=== PATIENT | female | born 1970 ===

== ENCOUNTER 2017-03-07 05:49 | Emergency (ER) | payer MEDICAID ==
[2017-03-07 06:22] VITALS: BP 148/91; PULSE 90; RESP 20; TEMP 98.1; O2SAT 99
== END 2017-03-07 06:45 | disposition left against medical advice (07) ==
LOC: C.ER 05:49
DX: Z00.8 Encounter for other general examination (principal); Z02.9 Encounter for administrative examinations, unspecified

== ENCOUNTER 2017-06-08 19:13 | Emergency (ER) | payer MEDICAID | END 2017-06-08 19:43 | disposition left against medical advice (07) | LOC: C.ER 19:13 | DX: Z02.89 Encounter for other administrative examinations (principal); R21 Rash and other nonspecific skin eruption ==

== ENCOUNTER → 2017-06-10 22:36 | Emergency (ER) | payer MEDICAID | END | disposition left against medical advice (07) | LOC: SUPCPDRO 22:36 → C.ER 22:36 | DX: R21 Rash and other nonspecific skin eruption (principal); Z02.9 Encounter for administrative examinations, unspecified ==

== ENCOUNTER 2017-06-16 16:58 | Emergency (ER) | payer MEDICAID | END 2017-06-16 17:39 | disposition left against medical advice (07) | LOC: C.ER 16:58 | DX: Z02.89 Encounter for other administrative examinations (principal); R21 Rash and other nonspecific skin eruption ==

== ENCOUNTER 2018-03-17 13:03 | Inpatient (IN) | payer MEDICAID, OTHER ==
[2018-03-17 13:09] VITALS: BMI 23.4
[2018-03-17] MEDS ORDERED: Sodium Chloride 0.9% 1,000 ML IV ONE (13:51)
[2018-03-17 14:19] LABS: BASO # 0.1 K/uL (0.0-0.2); BASO % 0.8 % (0.0-2.0); EOS % 0.4 % (0.0-4.0); LYMPH # 1.1 K/uL (1.0-4.3); LYMPH % 15.9 % (20.0-40.0); MEAN CORPUSCULAR HEMOGLOBIN 22.9 pg (27.0-31.0); MEAN CORPUSCULAR HGB CONC 32.7 g/dL (33.0-37.0); MEAN PLATELET VOLUME 8.7 fL (7.2-11.7); MONO # 0.9 K/uL (0.0-0.8); MONO % 13.1 % (0.0-10.0); NEUT % 69.8 % (50.0-75.0); NRBC % 1.1 % (0.0-2.0); RBC 3.11 Mil/uL (3.80-5.20); RED CELL DISTRIBUTION WIDTH 22.5 % (11.5-14.5); WHITE BLOOD COUNT 7.1 K/uL (4.8-10.8)
[2018-03-17 14:27] LABS: INR 1.3; PROTHROMBIN TIME 13.7 SECONDS (9.7-12.2)
--- NOTE | 2018-03-17 14:30 | RAD ---
HISTORY: near syncope COMPARISON: Comparison made with prior CT scan abdomen pelvis 10/31/2016 which imaged both lung bases. FINDINGS: LUNGS: No active pulmonary disease. PLEURA: No significant pleural effusion identified, no pneumothorax apparent. CARDIOVASCULAR: Normal. OSSEOUS STRUCTURES: No significant abnormalities. VISUALIZED UPPER ABDOMEN: Normal. OTHER FINDINGS: None. IMPRESSION: No active disease.
[2018-03-17 14:32] LABS: HEMOGLOBIN 7.1 g/dL (11.0-16.0)
[2018-03-17 14:47] LABS: BARBITURATES, UR NEGATIVE (NEGATIVE); BENZODIAZEPINES, UR NEGATIVE (NEGATIVE); OPIATES, UR NEGATIVE (NEGATIVE); PHENCYCLIDINE, UR NEGATIVE (NEGATIVE)
[2018-03-17 14:48] LABS: HCG,QUALITATIVE URINE NEGATIVE (NEGATIVE)
[2018-03-17 14:52] LABS: ALB/GLOB RATIO 0.9 (1.0-2.1); ALBUMIN 4.6 g/dL (3.5-5.0); ALT/SGPT 41 U/L (9-52); AST/SGOT 117 U/L (14-36); BLOOD UREA NITROGEN 11 mg/dL (7-17); GFR AFRICAN-AMERICAN > 60; GFR NON-AFRICAN AMERICAN > 60
[2018-03-17 14:52] LABS: SQUAMOUS EPITHIAL 5 /hpf (0-5); URINE BACTERIA OCC (<OCC); URINE BILIRUBIN NEGATIVE (NEGATIVE); URINE BLOOD NEGATIVE (NEGATIVE); URINE CLARITY Hazy (Clear); URINE COLOR Yellow (YELLOW); URINE GLUCOSE (UA) NORMAL (Normal); URINE LEUKOCYTE ESTERASE 3+ Leu/uL (Negative); URINE PROTEIN 1+ mg/dL (NEGATIVE)
[2018-03-17 14:53] LABS: B-TYPE NATRIURETIC PEPTIDE 85.4 pg/mL (0-450)
--- NOTE | 2018-03-17 15:06 | C.PDOC ---
History Of Present Illness 47-year-old female presents to the ED with her boyfriend for evaluation of near- syncopal episodes. Patient admits she drinks six 24-ounce beers every day and eats scantily. Patient has history of alcoholic cirrhosis with ascites but has not decreased her alcoholic intake. Patient and her boyfriend have history of homelessness. She denies suicidal/homicidal ideation, nausea, vomiting, extremity numbness/weakness at this time. Time Seen by Provider: 03/17/18 13:43 Chief Complaint (Nursing): Dizziness/Lightheaded History Per: Patient History/Exam Limitations: no limitations Onset/Duration Of Symptoms: Hrs Current Symptoms Are (Timing): Still Present Additional History Per: Patient Past Medical History Reviewed: Historical Data, Nursing Documentation, Vital Signs Vital Signs: Last Vital Signs Temp 99.3 F 03/17/18 22:18 Pulse 98 H 03/17/18 22:18 Resp 20 03/17/18 22:18 BP 131/68 03/17/18 22:18 Pulse Ox 100 03/17/18 22:49 - Medical History PMH: Anemia, Asthma Surgical History: No Surg Hx Family History: States: Unknown Family Hx - Social History Hx Alcohol Use: Yes Hx Substance Use: No - Immunization History Hx Tetanus Toxoid Vaccination: Yes Hx Influenza Vaccination: Yes Hx Pneumococcal Vaccination: Yes Review Of Systems Constitutional: Positive for: Other (early satiety) Gastrointestinal: Negative for: Nausea, Vomiting Neurological: Positive for: Other (near-syncopal episodes ). Negative for: Weakness, Numbness Psych: Negative for: Suicidal ideation Physical Exam - Physical Exam Appears: Non-toxic, No Acute Distress, Chronically Ill, Other (intoxicated ) Skin: Normal Color, Warm, Dry Head: Atraumatic, Normacephalic Eye(s): bilateral: Normal Inspection Oral Mucosa: Moist Neck: Supple Chest: Symmetrical, No Deformity, No Tenderness Cardiovascular: Rhythm Regular, No Murmur Respiratory: Normal Breath Sounds, No Rales, No Rhonchi, No Wheezing Gastrointestinal/Abdominal: Soft, No Guarding, No Rebound, Ascites Extremity: Normal ROM, Capillary Refill (less than 2 seconds ), Other (thin lower extremities) Neurological/Psych: Oriented x3, Normal Speech, Normal Cognition Additional Physical Exam Comments: rectal exam, no hemorroids, normal tone, scant stool, no dark discoloration, guaiac neg ED Course And Treatment - Laboratory Results Result Diagrams: 03/17/18 14:12 03/17/18 16:26 Lab Interpretation: Abnormal (signficant hyponatremia, baseline anemia. hgb drop from 11.3 (2/), UA 49 WBC's, guaiac neg.) Urine POC: Negative ECG: Interpreted By Me ECG Rhythm: Sinus Rhythm ECG Interpretation: Normal Rate From EC O2 Sat by Pulse Oximetry: 100 (on RA) Pulse Ox Interpretation: Normal - Radiology CXR: Interpreted by Me CXR Interpretation: Yes: No Acute Disease - Other Rad CXR X-Ray: Interpreted by Me, Viewed By Me, Read By Radiologist Interpretation: IMPRESSION: No active disease. Progress Note: ns, protonix, librium. Patient initially near-syncopal, but then spontaneously became ambulatory and conversational at baseline. Reevaluation Time: 15:26 Reassessment Condition: Improved - Physician Consult Information Outcome Of Conversation: 1500: d/w Hospitalist- [employer] for self-pay- ok to admit to tele, will guaiac pt on adm. Medical Decision Making Medical Decision Making: beer potomania pt euvolemic, avoid fluid overload in pt with abd ascites correct Na with diet. normal neuro exam in ED, defer hypertonic saline and ICU poor food intake and prob underlying alcoholic gastritis giving early satiety Protonix IV liver cirrhosis and abd ascites known from prior adm, LOW susp of acute abd/SBP Anemia/hgb drop from 11.3 to 7 probably GI and chronic denies s/s of GIB consider upper/lower endoscopies NOT symptomatic anemia, walking in ED with normal gait alcoholism librium given no h/o szr continue CIWA protocol UA 49 WBC's astympatic pyuria vs dirty catch defer abx re-eval UA if symptomatic. Disposition Doctor Will See Patient In The: Hospital Counseled Patient/Family Regarding: Studies Performed, Diagnosis - Disposition Disposition: HOSPITALIZED Disposition Time: 15:30 Condition: GOOD - Clinical Impression Clinical Impression: Near syncope, Alcohol abuse, Hyponatremia, Anemia - Scribe Statement The provider has reviewed the documentation as recorded by the Scribe (Jennifer Chapa) Provider Attestation: All medical record entries made by the Scribe were at my direction and personally dictated by me. I have reviewed the chart and agree that the record accurately reflects my personal performance of the history, physical exam, medical decision making, and the department course for this patient. I have also personally directed, reviewed, and agree with the discharge instructions and disposition.
--- NOTE | 2018-03-17 16:23 | CP.PCM.HP ---
<Radha WilkinsBaltazar - Last Filed: 03/17/18 18:01> History of Present Illness - History of Present Illness History of Present Illness: CC: dizziness, fall HPI: Patient has a PMHx of alcohol abuse, anemia, and depression (with multiple suicide attempts last one 10 years ago). Patient also admits to using crack 10 years ago daily. Patient presents today for dizziness and falls. Patient says she falls almost every day. Today the patient felt palpitations and dizziness and then fell to the floor. She said she did not hit her head today but thinks she may have hit her head 1 week ago. Patient did not lose consciousness or bowel or bladder incontinence. When patient was being transferred from the waiting room to a bed in the ED, staff said she became rigid, her eyes rolled back in her head, and she urinated herself. Patient says she does not remember this episode. Currently patient says she feels slightly lightheaded. Patient denies headache, chest pain, shortness of breath, abdominal pain, nausea, vomiting, constipation, or diarrhea. PMD: Dr. Nelson All: NKDA PMHx: Anemia, depression Psur c sections Social: drinks 4-5 large beers daily for 10 years used to do crack cocaine 10 years ago, used to smoke cigarettes 10 years ago Famhx: Mom- HTN Meds: was on zoloft 10 years ago for depression, no medications currently Present on Admission - Present on Admission Any Indicators Present on Admission: No History of DVT/PE: No History of Uncontrolled Diabetes: No Urinary Catheter: No Decubitus Ulcer Present: No Review of Systems - Constitutional Constitutional: Frequent Falls. absent: Anorexia, Chills, Fever, Headache, Weakness - EENT Eyes: absent: Change in Vision - Cardiovascular Cardiovascular: Palpitations. absent: Chest Pain, Dyspnea, Pedal Edema - Respiratory Respiratory: absent: Cough, Dyspnea, Wheezing - Gastrointestinal Gastrointestinal: absent: Abdominal Pain, Constipation, Nausea, Vomiting - Genitourinary Genitourinary: absent: Change in Urinary Stream, Difficulty Urinating, Dysuria - Musculoskeletal Musculoskeletal: Muscle Weakness - Integumentary Integumentary: Sores - Neurological Neurological: Dizziness, Frequent Falls Past Patient History - Past Social History Smoking Status: Never Smoked - PULMONARY Hx Asthma: Yes - HEMATOLOGICAL/ONCOLOGICAL Hx Anemia: Yes - PSYCHIATRIC Hx Substance Use: No - SURGICAL HISTORY Hx Surgeries: Yes Hx Section: Yes (x2) - ANESTHESIA Hx Anesthesia: Yes Hx Anesthesia Reactions: No Meds Allergies/Adverse Reactions: Allergies Allergy/AdvReac Type Severity Reaction Status Date / Time No Known Allergies Allergy Verified 03/17/18 13:08 Physical Exam - Constitutional Appears: Non-toxic, No Acute Distress - Head Exam Head Exam: ATRAUMATIC, NORMAL INSPECTION, NORMOCEPHALIC - Eye Exam Eye Exam: EOMI, Normal appearance - ENT Exam ENT Exam: Mucous Membranes Moist Additional comments: poor dentition - Neck Exam Neck exam: Positive for: Full Rom. Negative for: Tenderness - Respiratory Exam Respiratory Exam: Clear to Auscultation Bilateral, NORMAL BREATHING PATTERN. absent: Rales, Rhonchi, Wheezes, Respiratory Distress, Stridor - Cardiovascular Exam Cardiovascular Exam: REGULAR RHYTHM, RRR, +S1, +S2 - GI/Abdominal Exam GI & Abdominal Exam: Normal Bowel Sounds, Soft. absent: Tenderness - Rectal Exam Rectal Exam: NORMAL INSPECTION. absent: Bloody Stool, Hemorrhoids, Fecal Impaction - Extremities Exam Extremities exam: Positive for: normal inspection. Negative for: pedal edema, tenderness - Back Exam Back exam: NORMAL INSPECTION - Neurological Exam Neurological exam: Alert, CN II-XII Intact, Oriented x3 - Psychiatric Exam Psychiatric exam: Normal Affect, Normal Mood - Skin Skin Exam: Intact, Warm Additional comments: scabs over legs, arms, back Results - Vital Signs Recent Vital Signs: Last Vital Signs Temp 98.6 F 03/17/18 13:08 Pulse 96 H 03/17/18 16:00 Resp 18 03/17/18 16:00 BP 137/55 L 03/17/18 16:00 Pulse Ox 100 03/17/18 16:00 - Labs Result Diagrams: 03/17/18 14:12 03/17/18 16:26 Labs: Laboratory Results - last 24 hr 03/17/18 03/17/18 03/17/18 13:31 14:12 14:12 WBC 7.1 RBC 3.11 L Hgb 7.1 L D Hct 21.8 L MCV 70.0 L D MCH 22.9 L MCHC 32.7 L RDW 22.5 H Plt Count 164 MPV 8.7 Neut % (Auto) 69.8 Lymph % (Auto) 15.9 L [place] % (Auto) 13.1 H Eos % (Auto) 0.4 Baso % (Auto) 0.8 Neut # (Auto) 5.0 Lymph # (Auto) 1.1 [place] # (Auto) 0.9 H Eos # (Auto) 0.0 Baso # (Auto) 0.1 Retic Count PT 13.7 H INR 1.3 APTT 37 H Sodium Potassium Chloride Carbon Dioxide Anion Gap BUN Creatinine Est GFR ( Amer) Est GFR (Non-Af Amer) POC Glucose (mg/dL) 119 H Random Glucose Serum Osmolality Calcium Magnesium Total Bilirubin AST ALT Alkaline Phosphatase Total Creatine Kinase Troponin I NT-Pro-B Natriuret Pep Total Protein Albumin Globulin Albumin/Globulin Ratio Urine Color Urine Clarity Urine pH Ur Specific [place] Urine Protein Urine Glucose (UA) Urine Ketones Urine Blood Urine Nitrate Urine Bilirubin Urine Urobilinogen Ur Leukocyte Esterase Urine WBC (Auto) Urine RBC (Auto) Ur Squamous Epith Cells Urine Bacteria Ur Random Sodium Urine HCG, Qual Stool Occult Blood Urine Opiates Screen Urine Methadone Screen Ur Barbiturates Screen Ur Phencyclidine Scrn Ur Amphetamines Screen U Benzodiazepines Scrn U Oth Cocaine Metabols U Cannabinoids Screen Alcohol, Quantitative 03/17/18 03/17/18 03/17/18 14:12 14:25 14:25 WBC RBC Hgb Hct MCV MCH MCHC RDW Plt Count MPV Neut % (Auto) Lymph % (Auto) [place] % (Auto) Eos % (Auto) Baso % (Auto) Neut # (Auto) Lymph # (Auto) [place] # (Auto) Eos # (Auto) Baso # (Auto) Retic Count PT INR APTT Sodium 120 L* Potassium 3.8 Chloride 83 L Carbon Dioxide 20 L Anion Gap 21 H BUN 11 Creatinine 0.8 Est GFR ( Amer) > 60 Est GFR (Non-Af Amer) > 60 POC Glucose (mg/dL) Random Glucose 119 H Serum Osmolality Calcium 9.0 Magnesium 1.7 Total Bilirubin 0.7 AST 117 H ALT 41 Alkaline Phosphatase 149 H Total Creatine Kinase 85 Troponin I < 0.0120 NT-Pro-B Natriuret Pep 85.4 Total Protein 9.5 H Albumin 4.6 Globulin 5.0 H Albumin/Globulin Ratio 0.9 L Urine Color Yellow Urine Clarity Hazy Urine pH 7.0 Ur Specific [place] 1.010 Urine Protein 1+ H Urine Glucose (UA) Normal Urine Ketones Negative Urine Blood Negative Urine Nitrate Negative Urine Bilirubin Negative Urine Urobilinogen 2.0 H Ur Leukocyte Esterase 3+ H Urine WBC (Auto) 49 H Urine RBC (Auto) 2 Ur Squamous Epith Cells 5 Urine Bacteria Occ H Ur Random Sodium Urine HCG, Qual Negative Stool Occult Blood Urine Opiates Screen Negative Urine Methadone Screen Negative Ur Barbiturates Screen Negative Ur Phencyclidine Scrn Negative Ur Amphetamines Screen Negative U Benzodiazepines Scrn Negative U Oth Cocaine Metabols Negative U Cannabinoids Screen Negative Alcohol, Quantitative 155 H 03/17/18 03/17/18 03/17/18 15:49 15:59 16:03 WBC RBC Hgb Hct MCV MCH MCHC RDW Plt Count MPV Neut % (Auto) Lymph % (Auto) [place] % (Auto) Eos % (Auto) Baso % (Auto) Neut # (Auto) Lymph # (Auto) [place] # (Auto) Eos # (Auto) Baso # (Auto) Retic Count 2.9 H PT INR APTT Sodium Potassium Chloride Carbon Dioxide Anion Gap BUN Creatinine Est GFR ( Amer) Est GFR (Non-Af Amer) POC Glucose (mg/dL) Random Glucose Serum Osmolality 305 H Calcium Magnesium Total Bilirubin AST ALT Alkaline Phosphatase Total Creatine Kinase Troponin I NT-Pro-B Natriuret Pep Total Protein Albumin Globulin Albumin/Globulin Ratio Urine Color Urine Clarity Urine pH Ur Specific [place] Urine Protein Urine Glucose (UA) Urine Ketones Urine Blood Urine Nitrate Urine Bilirubin Urine Urobilinogen Ur Leukocyte Esterase Urine WBC (Auto) Urine RBC (Auto) Ur Squamous Epith Cells Urine Bacteria Ur Random Sodium 133 Urine HCG, Qual Stool Occult Blood Urine Opiates Screen Urine Methadone Screen Ur Barbiturates Screen Ur Phencyclidine Scrn Ur Amphetamines Screen U Benzodiazepines Scrn U Oth Cocaine Metabols U Cannabinoids Screen Alcohol, Quantitative 03/17/18 16:13 WBC RBC Hgb Hct MCV MCH MCHC RDW Plt Count MPV Neut % (Auto) Lymph % (Auto) [place] % (Auto) Eos % (Auto) Baso % (Auto) Neut # (Auto) Lymph # (Auto) [place] # (Auto) Eos # (Auto) Baso # (Auto) Retic Count PT INR APTT Sodium Potassium Chloride Carbon Dioxide Anion Gap BUN Creatinine Est GFR ( Amer) Est GFR (Non-Af Amer) POC Glucose (mg/dL) Random Glucose Serum Osmolality Calcium Magnesium Total Bilirubin AST ALT Alkaline Phosphatase Total Creatine Kinase Troponin I NT-Pro-B Natriuret Pep Total Protein Albumin Globulin Albumin/Globulin Ratio Urine Color Urine Clarity Urine pH Ur Specific [place] Urine Protein Urine Glucose (UA) Urine Ketones Urine Blood Urine Nitrate Urine Bilirubin Urine Urobilinogen Ur Leukocyte Esterase Urine WBC (Auto) Urine RBC (Auto) Ur Squamous Epith Cells Urine Bacteria Ur Random Sodium Urine HCG, Qual Stool Occult Blood Negative Urine Opiates Screen Urine Methadone Screen Ur Barbiturates Screen Ur Phencyclidine Scrn Ur Amphetamines Screen U Benzodiazepines Scrn U Oth Cocaine Metabols U Cannabinoids Screen Alcohol, Quantitative Assessment & Plan - Assessment and Plan (Free Text) Assessment: Hypovolemic Hyponatremia Admit to tele in Oct 2016 Na+ 120, today Na+ 120 (corrected to 125 with 1L NS) f/u serum osmolarity, urine osmolarity Urine Na+ 133 given 1L NS in ED Nephro consulted, Dr. Isabel, help appreciated Dehydration 1L NS given in ED S/p fall f/u Head CT Anemia suspected to be chronic f/u retic count, iron, TIBC, ferritin, % saturation, B12, folate, haptoglobin stool occult blood negative no gross blood seen on rectal, no hemorrhoids or masses type and screen ordered Alcohol abuse elevated alcohol on admission CIWA protocol Ativan 1mg iv q6h prn seizure Aspiration precautions seizure precautions Thiamine 100mg po daily Folic acid 1mg po daily Multivitamins daily Depression continue to monitor Prophylactic Measure Aspiration precautions seizure precautions fall precuations DVT prophylaxis once bleed ruled out SCDs Pepcid 20mg po daily PT/OT eval <Rubi Elaine V - Last Filed: 03/17/18 19:58> Results - Vital Signs Recent Vital Signs: Last Vital Signs Temp 99.3 F 03/17/18 17:51 Pulse 80 03/17/18 17:51 Resp 20 03/17/18 17:51 BP 151/77 H 03/17/18 17:51 Pulse Ox 100 03/17/18 17:51 - Labs Result Diagrams: 03/17/18 14:12 03/17/18 16:26 Labs: Laboratory Results - last 24 hr 03/17/18 03/17/18 03/17/18 13:31 14:12 14:12 WBC 7.1 RBC 3.11 L Hgb 7.1 L D Hct 21.8 L MCV 70.0 L D MCH 22.9 L MCHC 32.7 L RDW 22.5 H Plt Count 164 MPV 8.7 Neut % (Auto) 69.8 Lymph % (Auto) 15.9 L [place] % (Auto) 13.1 H Eos % (Auto) 0.4 Baso % (Auto) 0.8 Neut # (Auto) 5.0 Lymph # (Auto) 1.1 [place] # (Auto) 0.9 H Eos # (Auto) 0.0 Baso # (Auto) 0.1 Retic Count PT 13.7 H INR 1.3 APTT 37 H Sodium Potassium Chloride Carbon Dioxide Anion Gap BUN Creatinine Est GFR ( Amer) Est GFR (Non-Af Amer) POC Glucose (mg/dL) 119 H Random Glucose Serum Osmolality Calcium Magnesium Ferritin Total Bilirubin AST ALT Alkaline Phosphatase Total Creatine Kinase Troponin I NT-Pro-B Natriuret Pep Total Protein Albumin Globulin Albumin/Globulin Ratio Vitamin B12 Urine Color Urine Clarity Urine pH Ur Specific [place] Urine Protein Urine Glucose (UA) Urine Ketones Urine Blood Urine Nitrate Urine Bilirubin Urine Urobilinogen Ur Leukocyte Esterase Urine WBC (Auto) Urine RBC (Auto) Ur Squamous Epith Cells Urine Bacteria Ur Random Sodium Urine HCG, Qual Stool Occult Blood Urine Opiates Screen Urine Methadone Screen Ur Barbiturates Screen Ur Phencyclidine Scrn Ur Amphetamines Screen U Benzodiazepines Scrn U Oth Cocaine Metabols U Cannabinoids Screen Alcohol, Quantitative 03/17/18 03/17/18 03/17/18 14:12 14:25 14:25 WBC RBC Hgb Hct MCV MCH MCHC RDW Plt Count MPV Neut % (Auto) Lymph % (Auto) [place] % (Auto) Eos % (Auto) Baso % (Auto) Neut # (Auto) Lymph # (Auto) [place] # (Auto) Eos # (Auto) Baso # (Auto) Retic Count PT INR APTT Sodium 120 L* Potassium 3.8 Chloride 83 L Carbon Dioxide 20 L Anion Gap 21 H BUN 11 Creatinine 0.8 Est GFR ( Amer) > 60 Est GFR (Non-Af Amer) > 60 POC Glucose (mg/dL) Random Glucose 119 H Serum Osmolality Calcium 9.0 Magnesium 1.7 Ferritin Total Bilirubin 0.7 AST 117 H ALT 41 Alkaline Phosphatase 149 H Total Creatine Kinase 85 Troponin I < 0.0120 NT-Pro-B Natriuret Pep 85.4 Total Protein 9.5 H Albumin 4.6 Globulin 5.0 H Albumin/Globulin Ratio 0.9 L Vitamin B12 Urine Color Yellow Urine Clarity Hazy Urine pH 7.0 Ur Specific [place] 1.010 Urine Protein 1+ H Urine Glucose (UA) Normal Urine Ketones Negative Urine Blood Negative Urine Nitrate Negative Urine Bilirubin Negative Urine Urobilinogen 2.0 H Ur Leukocyte Esterase 3+ H Urine WBC (Auto) 49 H Urine RBC (Auto) 2 Ur Squamous Epith Cells 5 Urine Bacteria Occ H Ur Random Sodium Urine HCG, Qual Negative Stool Occult Blood Urine Opiates Screen Negative Urine Methadone Screen Negative Ur Barbiturates Screen Negative Ur Phencyclidine Scrn Negative Ur Amphetamines Screen Negative U Benzodiazepines Scrn Negative U Oth Cocaine Metabols Negative U Cannabinoids Screen Negative Alcohol, Quantitative 155 H 03/17/18 03/17/18 03/17/18 15:49 15:59 15:59 WBC RBC Hgb Hct MCV MCH MCHC RDW Plt Count MPV Neut % (Auto) Lymph % (Auto) [place] % (Auto) Eos % (Auto) Baso % (Auto) Neut # (Auto) Lymph # (Auto) [place] # (Auto) Eos # (Auto) Baso # (Auto) Retic Count 2.9 H PT INR APTT Sodium Potassium Chloride Carbon Dioxide Anion Gap BUN Creatinine Est GFR ( Amer) Est GFR (Non-Af Amer) POC Glucose (mg/dL) Random Glucose Serum Osmolality 305 H Calcium Magnesium Ferritin 9.3 Total Bilirubin AST ALT Alkaline Phosphatase Total Creatine Kinase Troponin I NT-Pro-B Natriuret Pep Total Protein Albumin Globulin Albumin/Globulin Ratio Vitamin B12 433 Urine Color Urine Clarity Urine pH Ur Specific [place] Urine Protein Urine Glucose (UA) Urine Ketones Urine Blood Urine Nitrate Urine Bilirubin Urine Urobilinogen Ur Leukocyte Esterase Urine WBC (Auto) Urine RBC (Auto) Ur Squamous Epith Cells Urine Bacteria Ur Random Sodium Urine HCG, Qual Stool Occult Blood Urine Opiates Screen Urine Methadone Screen Ur Barbiturates Screen Ur Phencyclidine Scrn Ur Amphetamines Screen U Benzodiazepines Scrn U Oth Cocaine Metabols U Cannabinoids Screen Alcohol, Quantitative 03/17/18 03/17/18 03/17/18 16:03 16:13 16:26 WBC RBC Hgb Hct MCV MCH MCHC RDW Plt Count MPV Neut % (Auto) Lymph % (Auto) [place] % (Auto) Eos % (Auto) Baso % (Auto) Neut # (Auto) Lymph # (Auto) [place] # (Auto) Eos # (Auto) Baso # (Auto) Retic Count PT INR APTT Sodium 125 L Potassium 3.6 Chloride 89 L Carbon Dioxide 18 L Anion Gap 21 H BUN 11 Creatinine 0.7 Est GFR ( Amer) > 60 Est GFR (Non-Af Amer) > 60 POC Glucose (mg/dL) Random Glucose 100 Serum Osmolality Calcium 8.5 L Magnesium Ferritin Total Bilirubin AST ALT Alkaline Phosphatase Total Creatine Kinase Troponin I NT-Pro-B Natriuret Pep Total Protein Albumin Globulin Albumin/Globulin Ratio Vitamin B12 Urine Color Urine Clarity Urine pH Ur Specific [place] Urine Protein Urine Glucose (UA) Urine Ketones Urine Blood Urine Nitrate Urine Bilirubin Urine Urobilinogen Ur Leukocyte Esterase Urine WBC (Auto) Urine RBC (Auto) Ur Squamous Epith Cells Urine Bacteria Ur Random Sodium 133 Urine HCG, Qual Stool Occult Blood Negative Urine Opiates Screen Urine Methadone Screen Ur Barbiturates Screen Ur Phencyclidine Scrn Ur Amphetamines Screen U Benzodiazepines Scrn U Oth Cocaine Metabols U Cannabinoids Screen Alcohol, Quantitative 03/17/18 18:05 WBC RBC Hgb Hct MCV MCH MCHC RDW Plt Count MPV Neut % (Auto) Lymph % (Auto) [place] % (Auto) Eos % (Auto) Baso % (Auto) Neut # (Auto) Lymph # (Auto) [place] # (Auto) Eos # (Auto) Baso # (Auto) Retic Count PT INR APTT Sodium Potassium Chloride Carbon Dioxide Anion Gap BUN Creatinine Est GFR ( Amer) Est GFR (Non-Af Amer) POC Glucose (mg/dL) Random Glucose Serum Osmolality Calcium Magnesium Ferritin Total Bilirubin AST ALT Alkaline Phosphatase Total Creatine Kinase Troponin I NT-Pro-B Natriuret Pep Total Protein Albumin Globulin Albumin/Globulin Ratio Vitamin B12 Urine Color Urine Clarity Urine pH Ur Specific [place] Urine Protein Urine Glucose (UA) Urine Ketones Urine Blood Urine Nitrate Urine Bilirubin Urine Urobilinogen Ur Leukocyte Esterase Urine WBC (Auto) Urine RBC (Auto) Ur Squamous Epith Cells Urine Bacteria Ur Random Sodium Urine HCG, Qual Stool Occult Blood Negative Urine Opiates Screen Urine Methadone Screen Ur Barbiturates Screen Ur Phencyclidine Scrn Ur Amphetamines Screen U Benzodiazepines Scrn U Oth Cocaine Metabols U Cannabinoids Screen Alcohol, Quantitative Attending/Attestation - Attestation I have personally seen and examined this patient.: Yes I have fully participated in the care of the patient.: Yes I have reviewed all pertinent clinical information: Yes Notes (Text): Patient seen, examined, and case discussed with day-time resident. Patient is known alcohol abuse, daily use, history of depression comes to the emergency room today. Patient has sodium 120; in Oct 2016 was 120. Patient is awake, alert, oriented X3, no acute distress, able to follow commands. Patient reports she mainly drinks beers. Patient with known hx of anemia; Hgb 7.7 prior Hgb: 11. Patient does not appear as acute gi bleed. Resident has performed rectal no gross blood noted. Stool occult is negative. Patient has received NS 1 Liter of fluid. Patient has history of falls and fell today as well. Patient ordered for CT head , which showed no acute pathology. Assessment/Plan 1) Suspected Hypovolemic Hyponatremia Assessment/Plan * Admit to tele * Beer potomania vs hypovoluemic vs s/p fall possible SIADH * Nephro consulted, Dr. Isabel, help appreciated * in Oct 2016 Na+ 120, today Na+ 120 (corrected to 125 with 1L NS) * f/u serum osmolarity, urine osmolarity, urine sodium * Discussed case with nephrology, awaiting urine osmolarity to determine if we need to start fluids. * Ordered for BMP, urine osmolarity, urine sodium in 6 hours * Will check TSH, Lipid panel, prolactin 2) Dehydration Assessment/Plan * 1L NS given in ED 3) S/p fall Assessment/Plan * CT head: no acute pathology 4) Anemia Assessment/Plan * suspected to be chronic * f/u retic count, iron, TIBC, ferritin, % saturation, B12, folate, haptoglobin * stool occult blood negative * no gross blood seen on rectal, no hemorrhoids or masses * type and screen ordered 5) Alcohol abuse Assessment/Plan * elevated alcohol on admission * CIWA protocol * Ativan 1mg iv q6h prn seizure * Aspiration precautions * seizure precautions * Thiamine 100mg po daily * Folic acid 1mg po daily * Multivitamins daily 6) History of Depression Assessment/Plan * continue to monitor * Patient used to take Zoloft for a year, but she decided to stop using it about 10 years ago 7) Prophylactic Measure Assessment/Plan * Aspiration precautions * seizure precautions * fall precautions * DVT prophylaxis once bleed ruled out * SCDs * Pepcid 20mg po daily * PT/OT eval
[2018-03-17 16:44] LABS: BLOOD UREA NITROGEN 11 mg/dL (7-17); CALCIUM 8.5 mg/dl (8.6-10.4); GFR AFRICAN-AMERICAN > 60; GFR NON-AFRICAN AMERICAN > 60
[2018-03-17 16:51] LABS: FERRITIN 9.3 ng/mL
--- NOTE | 2018-03-17 17:06 | CT ---
PROCEDURE: CT HEAD WITHOUT CONTRAST. HISTORY: fall, head trauma COMPARISON: CT head dated 10/31/2016. TECHNIQUE: Axial computed tomography images were obtained through the head/brain without intravenous contrast. Radiation dose: Total exam DLP = 811 mGy-cm. This CT exam was performed using one or more of the following dose reduction techniques: Automated exposure control, adjustment of the mA and/or kV according to patient size, and/or use of iterative reconstruction technique. FINDINGS: HEMORRHAGE: No intracranial hemorrhage. BRAIN: No mass effect or edema. Atrophy. Chronic microvascular ischemic changes. VENTRICLES: Prominent. No hydrocephalus. CALVARIUM: Unremarkable. PARANASAL SINUSES: Unremarkable as visualized. No significant inflammatory changes. MASTOID AIR CELLS: Unremarkable as visualized. No inflammatory changes. OTHER FINDINGS: None. IMPRESSION: No acute intracranial pathology.
[2018-03-17] MEDS: Multiple Vitamins Tab PO SCH (18:30)
[2018-03-17 19:52] LABS: IRON 21 ug/dL (37-170)
[2018-03-17 20:01] LABS: % IRON SATURATION 4 (20-55); TOTAL IRON BINDING CAPACITY 513 ug/dL (250-450)
[2018-03-18 00:01] LABS: BLOOD UREA NITROGEN 12 mg/dL (7-17); CALCIUM 9.1 mg/dl (8.6-10.4); GFR AFRICAN-AMERICAN > 60; GFR NON-AFRICAN AMERICAN > 60
[2018-03-18 01:01] LABS: OSMOLALITY,URINE 371 mosm/kg (300-1000)
--- NOTE | 2018-03-18 07:14 | CP.PCM.CON ---
History of Present Illness - History of Present Illness History of Present Illness: 47 yo F w/ pmh of ETOH abuse, depression, anemia, brought to ED by boyfriend for repeated falls and dizziness; nephrology being consulted for hyponatremia; History taken mainly from boyfriend and sister and patient is poor historian; Patient reportedly drinks ETOH 19/04; has been having persistent dizziness and repeated falls; doesn't eat much due to always drinking ETOH; had an episode of vomiting as well as some diarrhea yesterday; boyfriend also reports that she was complaining of dysuria although patient denies it Review of Systems - Constitutional Constitutional: As Per HPI - EENT Nose/Mouth/Throat: absent: Dysphagia - Cardiovascular Cardiovascular: absent: Chest Pain, Palpitations - Respiratory Respiratory: absent: Dyspnea - Gastrointestinal Gastrointestinal: As Per HPI - Genitourinary Genitourinary: As Per HPI - Musculoskeletal Additional comments: denies taking NSAIDS for pain - Neurological Neurological: As Per HPI - Psychiatric Additional comments: depression/substance abuse history, not showing interest in getting detox Past Patient History - Past Medical History & Family History Past Medical History?: Yes Pertinent Family History: mother-htn - Past Social History Smoking Status: Former Smoker - CARDIAC Hx Cardiac Disorders: No - PULMONARY Hx Asthma: Yes - NEUROLOGICAL Hx Neurological Disorder: No - HEENT Hx HEENT Problems: No - RENAL Hx Chronic Kidney Disease: No - ENDOCRINE/METABOLIC Hx Endocrine Disorders: No - HEMATOLOGICAL/ONCOLOGICAL Hx Anemia: Yes - INTEGUMENTARY Hx Dermatological Problems: Yes Other/Comment: Hx of itching, multiple scratch carmona all over body - MUSCULOSKELETAL/RHEUMATOLOGICAL Hx Falls: No - GASTROINTESTINAL Hx Gastrointestinal Disorders: No - GENITOURINARY/GYNECOLOGICAL Hx Genitourinary Disorders: No - PSYCHIATRIC Hx Substance Use: No - SURGICAL HISTORY Hx Surgeries: Yes Hx Section: Yes (x2) - ANESTHESIA Hx Anesthesia: Yes Hx Anesthesia Reactions: No Has any member of the family had a problem w/ anesthesia?: No Meds Allergies/Adverse Reactions: Allergies Allergy/AdvReac Type Severity Reaction Status Date / Time No Known Allergies Allergy Verified 03/17/18 13:08 - Medications Medications: Current Medications Famotidine (Pepcid) 20 mg PO DAILY [facility] Last Admin: 03/17/18 18:30 Dose: 20 mg Folic Acid (Folic Acid) 1 mg PO DAILY [facility] Last Admin: 03/17/18 18:30 Dose: 1 mg Lorazepam (Ativan) 1 mg IVP Q6H PRN PRN Reason: Seizure activity Last Admin: 03/18/18 00:47 Dose: 1 mg Multivitamins (Hexavitamin) 1 tab PO DAILY [facility] Last Admin: 03/17/18 18:30 Dose: 1 tab Mupirocin (Bactroban Ointment) 0 gm TOP BID [facility] Last Admin: 03/17/18 21:28 Dose: 1 applic Thiamine HCl (Vitamin B1 Tab) 100 mg PO DAILY [facility] Last Admin: 03/17/18 18:30 Dose: 100 mg Physical Exam - Constitutional Appears: Non-toxic, No Acute Distress - Eye Exam Eye Exam: absent: Scleral icterus - ENT Exam ENT Exam: Mucous Membranes Moist - Respiratory Exam Respiratory Exam: Clear to Auscultation Bilateral. absent: Respiratory Distress - Cardiovascular Exam Cardiovascular Exam: RRR, +S1 - GI/Abdominal Exam GI & Abdominal Exam: Soft. absent: Distended, Tenderness - Exam Exam: absent: Bladder Distension - Extremities Exam Additional comments: no leg edema - Neurological Exam Neurological exam: Alert Additional comments: tremor of outstretched hands; - Psychiatric Exam Additional comments: very fidgety - Skin Skin Exam: Normal Color, Warm Results - Vital Signs Recent Vital Signs: Last Vital Signs Temp 98.6 F 03/18/18 04:05 Pulse 105 H 03/18/18 04:05 Resp 20 03/18/18 04:05 BP 136/61 03/18/18 04:05 Pulse Ox 99 03/18/18 04:05 - Labs Result Diagrams: 03/17/18 14:12 03/17/18 23:46 Labs: Laboratory Results - last 24 hr 03/17/18 03/17/18 03/17/18 13:31 14:12 14:12 WBC 7.1 RBC 3.11 L Hgb 7.1 L D Hct 21.8 L MCV 70.0 L D MCH 22.9 L MCHC 32.7 L RDW 22.5 H Plt Count 164 MPV 8.7 Neut % (Auto) 69.8 Lymph % (Auto) 15.9 L [place] % (Auto) 13.1 H Eos % (Auto) 0.4 Baso % (Auto) 0.8 Neut # (Auto) 5.0 Lymph # (Auto) 1.1 Johnston # (Auto) 0.9 H Eos # (Auto) 0.0 Baso # (Auto) 0.1 Retic Count Haptoglobin PT 13.7 H INR 1.3 APTT 37 H Sodium Potassium Chloride Carbon Dioxide Anion Gap BUN Creatinine Est GFR ( Amer) Est GFR (Non-Af Amer) POC Glucose (mg/dL) 119 H Random Glucose Serum Osmolality Calcium Magnesium Iron TIBC % Saturation Ferritin Total Bilirubin AST ALT Alkaline Phosphatase Total Creatine Kinase Troponin I NT-Pro-B Natriuret Pep Total Protein Albumin Globulin Albumin/Globulin Ratio Vitamin B12 Folate Urine Color Urine Clarity Urine pH Ur Specific [place] Urine Protein Urine Glucose (UA) Urine Ketones Urine Blood Urine Nitrate Urine Bilirubin Urine Urobilinogen Ur Leukocyte Esterase Urine WBC (Auto) Urine RBC (Auto) Ur Squamous Epith Cells Urine Bacteria Urine Osmolality Ur Random Sodium Urine HCG, Qual Stool Occult Blood Urine Opiates Screen Urine Methadone Screen Ur Barbiturates Screen Ur Phencyclidine Scrn Ur Amphetamines Screen U Benzodiazepines Scrn U Oth Cocaine Metabols U Cannabinoids Screen Alcohol, Quantitative Blood Type Antibody Screen 03/17/18 03/17/18 03/17/18 14:12 14:25 14:25 WBC RBC Hgb Hct MCV MCH MCHC RDW Plt Count MPV Neut % (Auto) Lymph % (Auto) Johnston % (Auto) Eos % (Auto) Baso % (Auto) Neut # (Auto) Lymph # (Auto) Johnston # (Auto) Eos # (Auto) Baso # (Auto) Retic Count Haptoglobin PT INR APTT Sodium 120 L* Potassium 3.8 Chloride 83 L Carbon Dioxide 20 L Anion Gap 21 H BUN 11 Creatinine 0.8 Est GFR ( Amer) > 60 Est GFR (Non-Af Amer) > 60 POC Glucose (mg/dL) Random Glucose 119 H Serum Osmolality Calcium 9.0 Magnesium 1.7 Iron TIBC % Saturation Ferritin Total Bilirubin 0.7 AST 117 H ALT 41 Alkaline Phosphatase 149 H Total Creatine Kinase 85 Troponin I < 0.0120 NT-Pro-B Natriuret Pep 85.4 Total Protein 9.5 H Albumin 4.6 Globulin 5.0 H Albumin/Globulin Ratio 0.9 L Vitamin B12 Folate Urine Color Yellow Urine Clarity Hazy Urine pH 7.0 Ur Specific [place] 1.010 Urine Protein 1+ H Urine Glucose (UA) Normal Urine Ketones Negative Urine Blood Negative Urine Nitrate Negative Urine Bilirubin Negative Urine Urobilinogen 2.0 H Ur Leukocyte Esterase 3+ H Urine WBC (Auto) 49 H Urine RBC (Auto) 2 Ur Squamous Epith Cells 5 Urine Bacteria Occ H Urine Osmolality Ur Random Sodium Urine HCG, Qual Negative Stool Occult Blood Urine Opiates Screen Negative Urine Methadone Screen Negative Ur Barbiturates Screen Negative Ur Phencyclidine Scrn Negative Ur Amphetamines Screen Negative U Benzodiazepines Scrn Negative U Oth Cocaine Metabols Negative U Cannabinoids Screen Negative Alcohol, Quantitative 155 H Blood Type Antibody Screen 03/17/18 03/17/18 03/17/18 15:49 15:59 15:59 WBC RBC Hgb Hct MCV MCH MCHC RDW Plt Count MPV Neut % (Auto) Lymph % (Auto) [place] % (Auto) Eos % (Auto) Baso % (Auto) Neut # (Auto) Lymph # (Auto) [place] # (Auto) Eos # (Auto) Baso # (Auto) Retic Count 2.9 H Haptoglobin PT INR APTT Sodium Potassium Chloride Carbon Dioxide Anion Gap BUN Creatinine Est GFR ( Amer) Est GFR (Non-Af Amer) POC Glucose (mg/dL) Random Glucose Serum Osmolality 305 H Calcium Magnesium Iron TIBC % Saturation Ferritin 9.3 Total Bilirubin AST ALT Alkaline Phosphatase Total Creatine Kinase Troponin I NT-Pro-B Natriuret Pep Total Protein Albumin Globulin Albumin/Globulin Ratio Vitamin B12 433 Folate Urine Color Urine Clarity Urine pH Ur Specific [place] Urine Protein Urine Glucose (UA) Urine Ketones Urine Blood Urine Nitrate Urine Bilirubin Urine Urobilinogen Ur Leukocyte Esterase Urine WBC (Auto) Urine RBC (Auto) Ur Squamous Epith Cells Urine Bacteria Urine Osmolality Ur Random Sodium Urine HCG, Qual Stool Occult Blood Urine Opiates Screen Urine Methadone Screen Ur Barbiturates Screen Ur Phencyclidine Scrn Ur Amphetamines Screen U Benzodiazepines Scrn U Oth Cocaine Metabols U Cannabinoids Screen Alcohol, Quantitative Blood Type Antibody Screen 03/17/18 03/17/18 03/17/18 16:03 16:13 16:26 WBC RBC Hgb Hct MCV MCH MCHC RDW Plt Count MPV Neut % (Auto) Lymph % (Auto) [place] % (Auto) Eos % (Auto) Baso % (Auto) Neut # (Auto) Lymph # (Auto) [place] # (Auto) Eos # (Auto) Baso # (Auto) Retic Count Haptoglobin PT INR APTT Sodium 125 L Potassium 3.6 Chloride 89 L Carbon Dioxide 18 L Anion Gap 21 H BUN 11 Creatinine 0.7 Est GFR ( Amer) > 60 Est GFR (Non-Af Amer) > 60 POC Glucose (mg/dL) Random Glucose 100 Serum Osmolality Calcium 8.5 L Magnesium Iron TIBC % Saturation Ferritin Total Bilirubin AST ALT Alkaline Phosphatase Total Creatine Kinase Troponin I NT-Pro-B Natriuret Pep Total Protein Albumin Globulin Albumin/Globulin Ratio Vitamin B12 Folate Urine Color Urine Clarity Urine pH Ur Specific [place] Urine Protein Urine Glucose (UA) Urine Ketones Urine Blood Urine Nitrate Urine Bilirubin Urine Urobilinogen Ur Leukocyte Esterase Urine WBC (Auto) Urine RBC (Auto) Ur Squamous Epith Cells Urine Bacteria Urine Osmolality Ur Random Sodium 133 Urine HCG, Qual Stool Occult Blood Negative Urine Opiates Screen Urine Methadone Screen Ur Barbiturates Screen Ur Phencyclidine Scrn Ur Amphetamines Screen U Benzodiazepines Scrn U Oth Cocaine Metabols U Cannabinoids Screen Alcohol, Quantitative Blood Type Antibody Screen 03/17/18 03/17/18 03/17/18 18:05 19:36 19:36 WBC RBC Hgb Hct MCV MCH MCHC RDW Plt Count MPV Neut % (Auto) Lymph % (Auto) [place] % (Auto) Eos % (Auto) Baso % (Auto) Neut # (Auto) Lymph # (Auto) [place] # (Auto) Eos # (Auto) Baso # (Auto) Retic Count Haptoglobin PT INR APTT Sodium Potassium Chloride Carbon Dioxide Anion Gap BUN Creatinine Est GFR ( Amer) Est GFR (Non-Af Amer) POC Glucose (mg/dL) Random Glucose Serum Osmolality Calcium Magnesium Iron 21 L TIBC 513 H % Saturation 4 L Ferritin Total Bilirubin AST ALT Alkaline Phosphatase Total Creatine Kinase Troponin I NT-Pro-B Natriuret Pep Total Protein Albumin Globulin Albumin/Globulin Ratio Vitamin B12 Folate 17.5 Urine Color Urine Clarity Urine pH Ur Specific [place] Urine Protein Urine Glucose (UA) Urine Ketones Urine Blood Urine Nitrate Urine Bilirubin Urine Urobilinogen Ur Leukocyte Esterase Urine WBC (Auto) Urine RBC (Auto) Ur Squamous Epith Cells Urine Bacteria Urine Osmolality Ur Random Sodium Urine HCG, Qual Stool Occult Blood Negative Urine Opiates Screen Urine Methadone Screen Ur Barbiturates Screen Ur Phencyclidine Scrn Ur Amphetamines Screen U Benzodiazepines Scrn U Oth Cocaine Metabols U Cannabinoids Screen Alcohol, Quantitative Blood Type Antibody Screen 03/17/18 03/17/18 03/17/18 19:36 19:36 23:46 WBC RBC Hgb Hct MCV MCH MCHC RDW Plt Count MPV Neut % (Auto) Lymph % (Auto) [place] % (Auto) Eos % (Auto) Baso % (Auto) Neut # (Auto) Lymph # (Auto) [place] # (Auto) Eos # (Auto) Baso # (Auto) Retic Count Haptoglobin 189.8 PT INR APTT Sodium 127 L Potassium 3.9 Chloride 90 L Carbon Dioxide 21 L Anion Gap 19 BUN 12 Creatinine 0.9 Est GFR ( Amer) > 60 Est GFR (Non-Af Amer) > 60 POC Glucose (mg/dL) Random Glucose 116 H Serum Osmolality Calcium 9.1 Magnesium Iron TIBC % Saturation Ferritin Total Bilirubin AST ALT Alkaline Phosphatase Total Creatine Kinase Troponin I NT-Pro-B Natriuret Pep Total Protein Albumin Globulin Albumin/Globulin Ratio Vitamin B12 Folate Urine Color Urine Clarity Urine pH Ur Specific [place] Urine Protein Urine Glucose (UA) Urine Ketones Urine Blood Urine Nitrate Urine Bilirubin Urine Urobilinogen Ur Leukocyte Esterase Urine WBC (Auto) Urine RBC (Auto) Ur Squamous Epith Cells Urine Bacteria Urine Osmolality Ur Random Sodium Urine HCG, Qual Stool Occult Blood Urine Opiates Screen Urine Methadone Screen Ur Barbiturates Screen Ur Phencyclidine Scrn Ur Amphetamines Screen U Benzodiazepines Scrn U Oth Cocaine Metabols U Cannabinoids Screen Alcohol, Quantitative Blood Type O POSITIVE Antibody Screen Negative 03/18/18 00:56 WBC RBC Hgb Hct MCV MCH MCHC RDW Plt Count MPV Neut % (Auto) Lymph % (Auto) [place] % (Auto) Eos % (Auto) Baso % (Auto) Neut # (Auto) Lymph # (Auto) [place] # (Auto) Eos # (Auto) Baso # (Auto) Retic Count Haptoglobin PT INR APTT Sodium Potassium Chloride Carbon Dioxide Anion Gap BUN Creatinine Est GFR ( Amer) Est GFR (Non-Af Amer) POC Glucose (mg/dL) Random Glucose Serum Osmolality Calcium Magnesium Iron TIBC % Saturation Ferritin Total Bilirubin AST ALT Alkaline Phosphatase Total Creatine Kinase Troponin I NT-Pro-B Natriuret Pep Total Protein Albumin Globulin Albumin/Globulin Ratio Vitamin B12 Folate Urine Color Urine Clarity Urine pH Ur Specific [place] Urine Protein Urine Glucose (UA) Urine Ketones Urine Blood Urine Nitrate Urine Bilirubin Urine Urobilinogen Ur Leukocyte Esterase Urine WBC (Auto) Urine RBC (Auto) Ur Squamous Epith Cells Urine Bacteria Urine Osmolality 371 Ur Random Sodium 57 Urine HCG, Qual Stool Occult Blood Urine Opiates Screen Urine Methadone Screen Ur Barbiturates Screen Ur Phencyclidine Scrn Ur Amphetamines Screen U Benzodiazepines Scrn U Oth Cocaine Metabols U Cannabinoids Screen Alcohol, Quantitative Blood Type Antibody Screen - Imaging and Cardiology Chest x-ray Status: Image reviewed by me Additional comment: CXR - lungs clear; Assessment & Plan (1) Hyponatremia Assessment and Plan: Likely chronic in the setting of persistent ETOH abuse; cannot rule out an acute component due to volume depletion; unfortunately, urine osm from presentation not yet available; if elevated, would be consistent with volume depletion and high ADH release; if Ur osm from presentation is low, would be consistent simply with indaequate solute intake in the setting of ETOH abuse ( ie. beer potomania); Nevertheless, since serum Na increased sharply (120 -> 125) after being given just 1L NS, should continue to hold further IVF for now and just monitor serum Na and urine osm; -goal rate in rise of serum Na no more than 8 meq over 24 hrs; Status: Acute (2) Anemia Assessment and Plan: Iron deficient; recommend IV iron loading; Status: Chronic (3) Seizure Assessment and Plan: Reported seizure-like activity in ED; doubt this is due to hyponatremia as low serum Na is likely chronic and not very severe anyway; more likely due to ETOH; Status: Acute
[2018-03-18 07:47] LABS: BASO # 0.1 K/uL (0.0-0.2); BASO % 0.9 % (0.0-2.0); EOS % 0.3 % (0.0-4.0); LYMPH # 0.6 K/uL (1.0-4.3); LYMPH % 7.6 % (20.0-40.0); MEAN CELL VOLUME 70.1 fL (81.0-99.0); MEAN CORPUSCULAR HEMOGLOBIN 23.1 pg (27.0-31.0); MONO # 1.6 K/uL (0.0-0.8); MONO % 21.5 % (0.0-10.0); NEUT # 5.1 K/uL (1.8-7.0); NEUT % 69.7 % (50.0-75.0); NRBC % 0.6 % (0.0-2.0); PLATELET COUNT 143 K/uL (130-400); RBC 2.78 Mil/uL (3.80-5.20); RED CELL DISTRIBUTION WIDTH 22.5 % (11.5-14.5); WHITE BLOOD COUNT 7.3 K/uL (4.8-10.8)
[2018-03-18 07:58] LABS: HEMOGLOBIN 6.4 g/dL (11.0-16.0)
[2018-03-18 08:05] LABS: ALB/GLOB RATIO 0.9 (1.0-2.1); ALBUMIN 4.1 g/dL (3.5-5.0); ALT/SGPT 33 U/L (9-52); AST/SGOT 82 U/L (14-36); BLOOD UREA NITROGEN 15 mg/dL (7-17); CALCIUM 9.1 mg/dl (8.6-10.4); GFR AFRICAN-AMERICAN > 60; GFR NON-AFRICAN AMERICAN > 60; HDL CHOLESTEROL 73 mg/dL (30-70)
[2018-03-18 08:14] LABS: LDL CHOLESTEROL 31 mg/dL (0-129)
[2018-03-18 08:24] LABS: PROLACTIN 14.9 ng/mL (3.0-18.9)
[2018-03-18 08:42] LABS: ANISOCYTOSIS MODERATE; BANDS 4 % (0-2); EOSINOPHIL 1 % (0-4); HYPOCHROMIC MODERATE; LYMPHOCYTE 12 % (20-40); MONOCYTE 23 % (0-10); NEUTROPHIL 60 % (50-75); NUCLEATED RED BLOOD CELL 2 % (0-0); PLATELET ESTIMATE NORMAL (NORMAL); TOTAL CELLS COUNTED 100
[2018-03-18 08:43] LABS: TARGET CELLS SLIGHT
--- NOTE | 2018-03-18 10:39 | US ---
HISTORY: alcoholism, anemia COMPARISON: None. TECHNIQUE: Sonographic evaluation of the abdomen. FINDINGS: LIVER: Measures 15.0 cm. Mild diffuse increased echogenicity of the liver parenchyma. Consistent with mild diffuse fatty infiltration. Smooth contour. No mass. No intrahepatic biliary ductal dilatation. Normal hepatopetal portal venous flow. GALLBLADDER: Cholelithiasis. No mural thickening. No pericholecystic fluid. Negative sonographic Bruce sign. COMMON BILE DUCT: Measures 3 mm. No stones. No dilatation. PANCREAS: Unremarkable as visualized. No mass. No ductal dilatation. RIGHT KIDNEY: Measures 10.4cm. Normal echogenicity. No calculus, mass, or hydronephrosis. LEFT KIDNEY: Measures 9.1cm. Normal echogenicity. No calculus, mass, or hydronephrosis. SPLEEN: Normal in size and contour. No mass. AORTA: No aneurysmal dilatation. IVC: Unremarkable. OTHER FINDINGS: None. IMPRESSION: Mild fatty infiltration of the liver. Cholelithiasis without sonographic evidence of cholecystitis. Otherwise unremarkable examination.
[2018-03-18] MEDS: Multiple Vitamins Tab PO SCH (10:51)
[2018-03-18 13:14] VITALS: RESP 20
--- NOTE | 2018-03-18 15:37 | CP.PCM.PN ---
Addendum entered and electronically signed by Radha Wilkisn 03/18/18 15:49 : Rash/ scabbing 2% mupirocen ointment Original Note: <Radha Wilkins - Last Filed: 03/18/18 15:30> Subjective - Date & Time of Evaluation Date of Evaluation: 03/18/18 Time of Evaluation: 07:00 - Subjective Subjective: PGY2- Medicine Note for Dr. Elaine Patient seen and examined at bedside and in no acute distress. Patient says she feels better than yesterday. Patient complaining of some itching of her skin. Patient denies any headache, chest pain, abdominal pain, nausea, vomiting, constipation, or diarrhea. Objective - Vital Signs/Intake and Output Vital Signs (last 24 hours): Temp Pulse Resp BP Pulse Ox 98.1 F 90 20 151/79 H 99 03/18/18 14:30 03/18/18 14:30 03/18/18 14:30 03/18/18 14:30 03/18/18 08:32 Intake and Output: 03/18/18 03/18/18 06:59 18:59 Intake Total 600 480 Balance 600 480 - Medications Medications: Current Medications Famotidine (Pepcid) 20 mg PO DAILY [facility] Last Admin: 03/18/18 10:51 Dose: 20 mg Folic Acid (Folic Acid) 1 mg PO DAILY [facility] Last Admin: 03/18/18 10:51 Dose: 1 mg Ceftriaxone Sodium 1 gm/ (Sodium Chloride) 100 mls @ 100 mls/hr IVPB DAILY [facility] PRN Reason: Protocol Lorazepam (Ativan) 1 mg IVP Q6H PRN PRN Reason: Seizure activity Last Admin: 03/18/18 00:47 Dose: 1 mg Multivitamins (Hexavitamin) 1 tab PO DAILY [facility] Last Admin: 03/18/18 10:51 Dose: 1 tab Mupirocin (Bactroban Ointment) 0 gm TOP BID [facility] Last Admin: 03/18/18 10:50 Dose: 1 applic Thiamine HCl (Vitamin B1 Tab) 100 mg PO DAILY [facility] Last Admin: 03/18/18 10:51 Dose: 100 mg - Labs Labs: 03/18/18 07:37 03/18/18 07:37 PT 13.7 SECONDS (9.7-12.2) H 03/17/18 14:12 INR 1.3 03/17/18 14:12 APTT 37 SECONDS (21-34) H 03/17/18 14:12 - Additional Findings Additional findings: - Constitutional Appears: Non-toxic, No Acute Distress - Head Exam Head Exam: ATRAUMATIC, NORMAL INSPECTION, NORMOCEPHALIC - Eye Exam Eye Exam: EOMI, Normal appearance - ENT Exam ENT Exam: Mucous Membranes Moist Additional comments: poor dentition - Neck Exam Neck exam: Positive for: Full Rom. Negative for: Tenderness - Respiratory Exam Respiratory Exam: Clear to Auscultation Bilateral, NORMAL BREATHING PATTERN. absent: Rales, Rhonchi, Wheezes, Respiratory Distress, Stridor - Cardiovascular Exam Cardiovascular Exam: REGULAR RHYTHM, RRR, +S1, +S2 - GI/Abdominal Exam GI & Abdominal Exam: Normal Bowel Sounds, Soft. absent: Tenderness - Rectal Exam Rectal Exam: NORMAL INSPECTION. absent: Bloody Stool, Hemorrhoids, Fecal Impaction - Extremities Exam Extremities exam: Positive for: normal inspection. Negative for: pedal edema, tenderness - Back Exam Back exam: NORMAL INSPECTION - Neurological Exam Neurological exam: Alert, CN II-XII Intact, Oriented x3 - Psychiatric Exam Psychiatric exam: Normal Affect, Normal Mood - Skin Skin Exam: Intact, Warm Additional comments: scabs over legs, arms, back Assessment and Plan - Assessment and Plan (Free Text) Assessment: Hypovolemic Hyponatremia Admit to tele Na+ 124 urine osm: 371, 411 possibly SIADH Urine Na+ 133 cortisol am: 13 given 1L NS in ED Nephro consulted, Dr. Isabel, help appreciated Salt tab 2g q8h Lasix 20mg po daily continue to monitor Dehydration, resolved 1L NS given in ED S/p fall Head CT: no acute intracranial pathology Anemia HgB dropped to 6.4, transfused 1 u prbc on 03/18 suspected to be chronic retic count:2.9 (h) iron: 21 (l) TIBC: 513 (h) ferritin: 9.3 % saturation: 4 (L), B12: 433, folate : 17.5, haptoglobin: 189.8 stool occult blood negative no gross blood seen on rectal, no hemorrhoids or masses type and screen ordered Alcohol abuse elevated alcohol on admission CIWA protocol Ativan 1mg iv q6h prn alcohol withdrawal Aspiration precautions seizure precautions Thiamine 100mg po daily Folic acid 1mg po daily Multivitamins daily abdominal u/s: mild fatty infiltration of the liver. cholelithiasis without sonographic evidence of cholecystitis. otherwise unremarkable Depression continue to monitor Elevated TSH TSH: 7.56 f/u free T4 UTI Rocephin 1 gm ivpb daily Prophylactic Measure Aspiration precautions seizure precautions fall precuations DVT prophylaxis once bleed ruled out SCDs Pepcid 20mg po daily PT/OT eval <Rubi Elaine V - Last Filed: 03/19/18 09:29> Objective - Vital Signs/Intake and Output Vital Signs (last 24 hours): Temp Pulse Resp BP Pulse Ox 99.0 F 94 H 20 128/74 100 03/19/18 08:34 03/19/18 08:34 03/19/18 08:34 03/19/18 08:34 03/19/18 08:34 Intake and Output: 03/19/18 03/19/18 06:59 18:59 Intake Total 300 Balance 300 - Medications Medications: Current Medications Famotidine (Pepcid) 20 mg PO DAILY [facility] Last Admin: 03/18/18 10:51 Dose: 20 mg Ferric Sodium Gluconate Complex (Ferrlecit) 125 mg IVPB DAILY [facility] Stop: 03/27/18 10:01 Folic Acid (Folic Acid) 1 mg PO DAILY [facility] Last Admin: 03/18/18 10:51 Dose: 1 mg Furosemide (Lasix) 20 mg PO DAILY [facility] Last Admin: 03/18/18 18:35 Dose: 20 mg Ceftriaxone Sodium 1 gm/ (Sodium Chloride) 100 mls @ 100 mls/hr IVPB Q24H [facility] PRN Reason: Protocol Last Admin: 03/18/18 18:38 Dose: 100 mls/hr Lorazepam (Ativan) 1 mg IVP Q6H PRN PRN Reason: Symptoms of alcohol withdrawl Multivitamins (Hexavitamin) 1 tab PO DAILY [facility] Last Admin: 03/18/18 10:51 Dose: 1 tab Mupirocin (Bactroban Ointment) 0 gm TOP BID [facility] Last Admin: 03/18/18 18:38 Dose: 1 applic Sodium Chloride (Sodium Chloride Tab) 2 gm PO Q8H [facility] Last Admin: 03/19/18 01:00 Dose: 2 gm Thiamine HCl (Vitamin B1 Tab) 100 mg PO DAILY [facility] Last Admin: 03/18/18 10:51 Dose: 100 mg - Labs Labs: 03/19/18 08:37 03/18/18 07:37 PT 13.7 SECONDS (9.7-12.2) H 03/17/18 14:12 INR 1.3 03/17/18 14:12 APTT 37 SECONDS (21-34) H 03/17/18 14:12 Attending/Attestation - Attestation I have personally seen and examined this patient.: Yes I have fully participated in the care of the patient.: Yes I have reviewed all pertinent clinical information, including history, physical exam and plan: Yes Notes (Text): This is late computer entry for 03/18/18 Patient seen, examined, and case discussed with day-time resident. Patient is awake, alert, oriented. Patient's hemoglobin dropped from to 6.4. Patient type and crossed 1 unit of PRBC and ordered for 1 unit today. Case discussed with nephrology, concerned for beer potomania given urine osmolarity elevated. Recommended for patient to start lasix and salt tabs. Assessment/Plan 1) Chronic Hyponatremia Assessment/Plan * Admit to tele * Beer potomania vs hypovoluemic vs s/p fall possible SIADH * Nephro consulted, Dr. Isabel, help appreciated * Likely chronic in the setting of persistent ETOH abuse; cannot rule out an acute component due to volume depletion; unfortunately, urine osm from presentation not yet available; if elevated, would be consistent with volume depletion and high ADH release; if Ur osm from presentation is low, would be consistent simply with indaequate solute intake in the setting of ETOH abuse ( ie. beer potomania); * Nevertheless, since serum Na increased sharply (120 -> 125) after being given just 1L NS, should continue to hold further IVF for now and just monitor serum Na and urine osm; * goal rate in rise of serum Na no more than 8 meq over 24 hrs; * Start sodium choloride tab 2 gm PO Q8H * c/w Lasix 20mg PO daily 2) Dehydration -->resolved Assessment/Plan * 1L NS given in ED 3) S/p fall Assessment/Plan * CT head: no acute pathology * Fall risk protocol * Physical therapy unable to work with patient given hgb 6.4 4) Anemia Likely chronic disease Assessment/Plan * suspected to be chronic * Reticulocyte count: 2.9 * Iron: 21 * TIBC: 513 * %saturation: 4 * Ferritin: 9.3 * B12: 433 * Folate: 17.5 * Rectal is negative. * stool occult blood negative X2 * type and screen ordered * Type and cross 1 unit of PRBC to be given today given drop in hemoglobin * Start Ferrlecit 125mg IVPB daily 5) Alcohol abuse Assessment/Plan * elevated alcohol on admission * CIWA protocol * Ativan 1mg iv q6h prn seizure * Aspiration precautions * seizure precautions * Thiamine 100mg po daily * Folic acid 1mg po daily * Multivitamins daily 6) History of Depression Assessment/Plan * continue to monitor * Patient used to take Zoloft for a year, but she decided to stop using it about 10 years ago 7) Abnormal UA Assessment/Plan * Has abnormal UA-->esterase, pyuria * Pending urine culture * Start Rocephin 1 gram IV q daily 8) Rash Assessment/Plan * Bactroban ointment topical bid * Improving over the arms and legs 9) Prophylactic Measure Assessment/Plan * Aspiration precautions * seizure precautions * fall precautions * DVT prophylaxis once bleed ruled out * SCDs * Pepcid 20mg po daily * PT/OT eval
[2018-03-18 19:55] LABS: BASO # 0.1 K/uL (0.0-0.2); BASO % 0.7 % (0.0-2.0); EOS % 0.6 % (0.0-4.0); LYMPH # 0.4 K/uL (1.0-4.3); LYMPH % 6.3 % (20.0-40.0); MEAN CELL VOLUME 73.5 fL (81.0-99.0); MEAN CORPUSCULAR HEMOGLOBIN 24.4 pg (27.0-31.0); MEAN CORPUSCULAR HGB CONC 33.2 g/dL (33.0-37.0); MEAN PLATELET VOLUME 8.7 fL (7.2-11.7); MONO # 1.6 K/uL (0.0-0.8); MONO % 23.8 % (0.0-10.0); NEUT # 4.7 K/uL (1.8-7.0); NEUT % 68.6 % (50.0-75.0); NRBC % 0.8 % (0.0-2.0); PLATELET COUNT 142 K/uL (130-400); RBC 3.48 Mil/uL (3.80-5.20); WHITE BLOOD COUNT 6.9 K/uL (4.8-10.8)
[2018-03-18 19:57] LABS: HEMOGLOBIN 8.5 g/dL (11.0-16.0)
[2018-03-18 20:23] LABS: LYMPHOCYTE 8 % (20-40); MONOCYTE 24 % (0-10); NEUTROPHIL 68 % (50-75); TOTAL CELLS COUNTED 100
[2018-03-18 20:24] LABS: ANISOCYTOSIS MODERATE; HYPOCHROMIC MODERATE; PLATELET ESTIMATE NORMAL (NORMAL); POLYCHROMIC SLIGHT; TARGET CELLS SLIGHT
--- NOTE | 2018-03-18 22:49 | CARD ---
APPROVED REPORT EKG Measurement Heart [id number] <Conclusion> Normal sinus rhythm Normal ECG
[2018-03-19 04:31] VITALS: O2SAT 100
--- NOTE | 2018-03-19 07:59 | CP.PCM.PN ---
Subjective - Date & Time of Evaluation Date of Evaluation: 03/18/18 Time of Evaluation: 12:00 - Subjective Subjective: Patient still very fidgety; tolerating diet well; reports urinating well; Objective - Vital Signs/Intake and Output Vital Signs (last 24 hours): Temp Pulse Resp BP Pulse Ox 98.7 F 86 20 137/72 100 03/19/18 04:30 03/19/18 04:30 03/19/18 04:30 03/19/18 04:30 03/19/18 04:30 Intake and Output: 03/19/18 03/19/18 06:59 18:59 Intake Total 300 Balance 300 - Medications Medications: Current Medications Famotidine (Pepcid) 20 mg PO DAILY [facility] Last Admin: 03/18/18 10:51 Dose: 20 mg Folic Acid (Folic Acid) 1 mg PO DAILY [facility] Last Admin: 03/18/18 10:51 Dose: 1 mg Furosemide (Lasix) 20 mg PO DAILY [facility] Last Admin: 03/18/18 18:35 Dose: 20 mg Ceftriaxone Sodium 1 gm/ (Sodium Chloride) 100 mls @ 100 mls/hr IVPB Q24H [facility] PRN Reason: Protocol Last Admin: 03/18/18 18:38 Dose: 100 mls/hr Lorazepam (Ativan) 1 mg IVP Q6H PRN PRN Reason: Symptoms of alcohol withdrawl Multivitamins (Hexavitamin) 1 tab PO DAILY [facility] Last Admin: 03/18/18 10:51 Dose: 1 tab Mupirocin (Bactroban Ointment) 0 gm TOP BID [facility] Last Admin: 03/18/18 18:38 Dose: 1 applic Sodium Chloride (Sodium Chloride Tab) 2 gm PO Q8H [facility] Last Admin: 03/19/18 01:00 Dose: 2 gm Thiamine HCl (Vitamin B1 Tab) 100 mg PO DAILY [facility] Last Admin: 03/18/18 10:51 Dose: 100 mg - Labs Labs: 03/18/18 19:41 03/18/18 07:37 PT 13.7 SECONDS (9.7-12.2) H 03/17/18 14:12 INR 1.3 03/17/18 14:12 APTT 37 SECONDS (21-34) H 03/17/18 14:12 - Constitutional Appears: Non-toxic, No Acute Distress - Eye Exam Eye Exam: absent: Scleral icterus - Respiratory Exam Respiratory Exam: Clear to Ausculation Bilateral. absent: Respiratory Distress - Cardiovascular Exam Cardiovascular Exam: RRR, +S1, +S2 - GI/Abdominal Exam GI & Abdominal Exam: Soft. absent: Distended, Tenderness - Exam Exam: absent: Bladder Distension - Extremities Exam Additional comments: no leg edema; - Neurological Exam Neurological Exam: Alert, Awake - Skin Skin Exam: Warm. absent: Cyanosis Assessment and Plan (1) Hyponatremia Assessment & Plan: Mildly worsened after improving; high Ur osm consistent with SIADH (can be seen with volume deficit as well but appears euvolemic); no cirrhosis to suggest relative intravascular volume depletion and sodium retention state; -starting PO lasix 20 mg aily and salt tabs 2g q8h; -will need some degree of fluid restriction with above measures (will likely make her more thirsty); Status: Acute (2) Anemia Assessment & Plan: Hgb dropping, agree with prbc transfusion, will help maintain volume status as well; Status: Chronic (3) Seizure Status: Acute
--- NOTE | 2018-03-19 08:21 | CP.PCM.PN ---
Subjective - Date & Time of Evaluation Date of Evaluation: 03/19/18 Time of Evaluation: 07:00 - Subjective Subjective: Medicine Note for Dr. Elaine Patient seen and examined at bedside and in no acute distress. Objective - Vital Signs/Intake and Output Vital Signs (last 24 hours): Temp Pulse Resp BP Pulse Ox 98.7 F 86 20 137/72 100 03/19/18 04:30 03/19/18 04:30 03/19/18 04:30 03/19/18 04:30 03/19/18 04:30 Intake and Output: 03/19/18 03/19/18 06:59 18:59 Intake Total 300 Balance 300 - Medications Medications: Current Medications Famotidine (Pepcid) 20 mg PO DAILY [facility] Last Admin: 03/18/18 10:51 Dose: 20 mg Ferric Sodium Gluconate Complex (Ferrlecit) 125 mg IVPB DAILY [facility] Stop: 03/27/18 10:01 Folic Acid (Folic Acid) 1 mg PO DAILY [facility] Last Admin: 03/18/18 10:51 Dose: 1 mg Furosemide (Lasix) 20 mg PO DAILY [facility] Last Admin: 03/18/18 18:35 Dose: 20 mg Ceftriaxone Sodium 1 gm/ (Sodium Chloride) 100 mls @ 100 mls/hr IVPB Q24H [facility] PRN Reason: Protocol Last Admin: 03/18/18 18:38 Dose: 100 mls/hr Lorazepam (Ativan) 1 mg IVP Q6H PRN PRN Reason: Symptoms of alcohol withdrawl Multivitamins (Hexavitamin) 1 tab PO DAILY [facility] Last Admin: 03/18/18 10:51 Dose: 1 tab Mupirocin (Bactroban Ointment) 0 gm TOP BID [facility] Last Admin: 03/18/18 18:38 Dose: 1 applic Sodium Chloride (Sodium Chloride Tab) 2 gm PO Q8H [facility] Last Admin: 03/19/18 01:00 Dose: 2 gm Thiamine HCl (Vitamin B1 Tab) 100 mg PO DAILY [facility] Last Admin: 03/18/18 10:51 Dose: 100 mg - Labs Labs: 03/18/18 19:41 03/18/18 07:37 PT 13.7 SECONDS (9.7-12.2) H 03/17/18 14:12 INR 1.3 03/17/18 14:12 APTT 37 SECONDS (21-34) H 03/17/18 14:12 - Additional Findings Additional findings: - Constitutional Appears: Non-toxic, No Acute Distress - Head Exam Head Exam: ATRAUMATIC, NORMAL INSPECTION, NORMOCEPHALIC - Eye Exam Eye Exam: EOMI, Normal appearance - ENT Exam ENT Exam: Mucous Membranes Moist Additional comments: poor dentition - Neck Exam Neck exam: Positive for: Full Rom. Negative for: Tenderness - Respiratory Exam Respiratory Exam: Clear to Auscultation Bilateral, NORMAL BREATHING PATTERN. absent: Rales, Rhonchi, Wheezes, Respiratory Distress, Stridor - Cardiovascular Exam Cardiovascular Exam: REGULAR RHYTHM, RRR, +S1, +S2 - GI/Abdominal Exam GI & Abdominal Exam: Normal Bowel Sounds, Soft. absent: Tenderness - Rectal Exam Rectal Exam: NORMAL INSPECTION. absent: Bloody Stool, Hemorrhoids, Fecal Impaction - Extremities Exam Extremities exam: Positive for: normal inspection. Negative for: pedal edema, tenderness - Back Exam Back exam: NORMAL INSPECTION - Neurological Exam Neurological exam: Alert, CN II-XII Intact, Oriented x3 - Psychiatric Exam Psychiatric exam: Normal Affect, Normal Mood - Skin Skin Exam: Intact, Warm Additional comments: scabs over legs, arms, back Assessment and Plan - Assessment and Plan (Free Text) Assessment: Hypovolemic Hyponatremia Admit to tele Na+ 124 urine osm: 371, 411 possibly SIADH Urine Na+ 133 cortisol am: 13 given 1L NS in ED Nephro consulted, Dr. Isabel, help appreciated Salt tab 2g q8h Lasix 20mg po daily continue to monitor Dehydration, resolved 1L NS given in ED S/p fall Head CT: no acute intracranial pathology Anemia HgB dropped to 6.4, transfused 1 u prbc on 03/18 suspected to be chronic retic count:2.9 (h) iron: 21 (l) TIBC: 513 (h) ferritin: 9.3 % saturation: 4 (L), B12: 433, folate : 17.5, haptoglobin: 189.8 stool occult blood negative no gross blood seen on rectal, no hemorrhoids or masses type and screen ordered Alcohol abuse elevated alcohol on admission CIWA protocol Ativan 1mg iv q6h prn alcohol withdrawal Aspiration precautions seizure precautions Thiamine 100mg po daily Folic acid 1mg po daily Multivitamins daily abdominal u/s: mild fatty infiltration of the liver. cholelithiasis without sonographic evidence of cholecystitis. otherwise unremarkable Depression continue to monitor Elevated TSH TSH: 7.56 f/u free T4 UTI Rocephin 1 gm ivpb daily Prophylactic Measure Aspiration precautions seizure precautions fall precuations DVT prophylaxis once bleed ruled out SCDs Pepcid 20mg po daily PT/OT eval
[2018-03-19 08:35] VITALS: BP 128/74; PULSE 94; TEMP 99
[2018-03-19 08:51] LABS: BASO % 0.5 % (0.0-2.0); EOS # 0.1 K/uL (0.0-0.7); EOS % 1.1 % (0.0-4.0); HEMOGLOBIN 8.1 g/dL (11.0-16.0); LYMPH # 0.5 K/uL (1.0-4.3); MEAN CELL VOLUME 73.1 fL (81.0-99.0); MEAN CORPUSCULAR HEMOGLOBIN 24.1 pg (27.0-31.0); MEAN CORPUSCULAR HGB CONC 32.9 g/dL (33.0-37.0); MEAN PLATELET VOLUME 8.7 fL (7.2-11.7); MONO # 1.4 K/uL (0.0-0.8); MONO % 19.9 % (0.0-10.0); NEUT # 4.9 K/uL (1.8-7.0); NEUT % 71.5 % (50.0-75.0); NRBC % 0.5 % (0.0-2.0); PLATELET COUNT 153 K/uL (130-400); RBC 3.36 Mil/uL (3.80-5.20); WHITE BLOOD COUNT 6.9 K/uL (4.8-10.8)
[2018-03-19 09:22] LABS: ALB/GLOB RATIO 0.8 (1.0-2.1); ALBUMIN 4.2 g/dL (3.5-5.0); ALT/SGPT 28 U/L (9-52); AST/SGOT 64 U/L (14-36); BLOOD UREA NITROGEN 17 mg/dL (7-17); CALCIUM 9.1 mg/dl (8.6-10.4); GFR AFRICAN-AMERICAN > 60; GFR NON-AFRICAN AMERICAN > 60
--- NOTE | 2018-03-19 09:34 | CP.PCM.PN ---
Subjective - Date & Time of Evaluation Date of Evaluation: 03/19/18 Time of Evaluation: 09:00 - Subjective Subjective: Medical Attending Note: Patient seen and examined this morning. Patient is awake, alert, oriented X2.5 (does not known [place] is the president, knows her name, birthdate, and 's name). Patient is getting up out of bed inspite of AVASYS. I have told her she is on fall precautions given history of fall and she should work with the physical therapy. Patient reports she would like ice. Patient denies chest pain, denies cough, denies shortness of breathe, denies abdominal pain, +constipation, denies leg pains. Patient reports rash is improving. Objective - Vital Signs/Intake and Output Vital Signs (last 24 hours): Temp Pulse Resp BP Pulse Ox 99.0 F 94 H 20 128/74 100 03/19/18 08:34 03/19/18 08:34 03/19/18 08:34 03/19/18 08:34 03/19/18 08:34 Intake and Output: 03/19/18 03/19/18 06:59 18:59 Intake Total 300 Balance 300 - Medications Medications: Current Medications Famotidine (Pepcid) 20 mg PO DAILY [facility] Last Admin: 03/18/18 10:51 Dose: 20 mg Ferric Sodium Gluconate Complex (Ferrlecit) 125 mg IVPB DAILY [facility] Stop: 03/27/18 10:01 Folic Acid (Folic Acid) 1 mg PO DAILY [facility] Last Admin: 03/18/18 10:51 Dose: 1 mg Furosemide (Lasix) 20 mg PO DAILY [facility] Last Admin: 03/18/18 18:35 Dose: 20 mg Ceftriaxone Sodium 1 gm/ (Sodium Chloride) 100 mls @ 100 mls/hr IVPB Q24H [facility] PRN Reason: Protocol Last Admin: 03/18/18 18:38 Dose: 100 mls/hr Lorazepam (Ativan) 1 mg IVP Q6H PRN PRN Reason: Symptoms of alcohol withdrawl Multivitamins (Hexavitamin) 1 tab PO DAILY [facility] Last Admin: 03/18/18 10:51 Dose: 1 tab Mupirocin (Bactroban Ointment) 0 gm TOP BID [facility] Last Admin: 03/18/18 18:38 Dose: 1 applic Sodium Chloride (Sodium Chloride Tab) 2 gm PO Q8H [facility] Last Admin: 03/19/18 01:00 Dose: 2 gm Thiamine HCl (Vitamin B1 Tab) 100 mg PO DAILY [facility] Last Admin: 03/18/18 10:51 Dose: 100 mg - Labs Labs: 03/19/18 08:37 03/19/18 08:37 PT 13.7 SECONDS (9.7-12.2) H 03/17/18 14:12 INR 1.3 03/17/18 14:12 APTT 37 SECONDS (21-34) H 03/17/18 14:12 - Constitutional Appears: Non-toxic, No Acute Distress - Head Exam Head Exam: NORMAL INSPECTION - Eye Exam Eye Exam: EOMI - ENT Exam ENT Exam: Mucous Membranes Moist - Respiratory Exam Respiratory Exam: Clear to Ausculation Bilateral, NORMAL BREATHING PATTERN. absent: Rales, Rhonchi, Wheezes - Cardiovascular Exam Cardiovascular Exam: REGULAR RHYTHM, +S1, +S2 - GI/Abdominal Exam GI & Abdominal Exam: Soft, Normal Bowel Sounds. absent: Distended, Firm, Guarding, Rigid, Tenderness, Rebound - Extremities Exam Extremities Exam: absent: Pedal Edema, Tenderness - Neurological Exam Neurological Exam: Alert, Awake, Oriented x3 Neuro motor strength exam: Left Upper Extremity: 5, Right Upper Extremity: 5, Left Lower Extremity: 5, Right Lower Extremity: 5 - Psychiatric Exam Psychiatric exam: Normal Affect, Normal Mood - Skin Skin Exam: Dry, Warm Additional comments: scabs over legs, arms, back (no open wounds); fading over the upper and lower extremities Assessment and Plan (1) Chronic hyponatremia Status: Acute (2) Rash Status: Acute (3) Alcohol abuse Status: Acute (4) Anemia Status: Chronic Attending/Attestation - Attestation I have personally seen and examined this patient.: Yes I have fully participated in the care of the patient.: Yes I have reviewed all pertinent clinical information, including history, physical exam and plan: Yes Notes (Text): Patient seen, examined and case discussed with day-time resident. Patient seen this morning. Patient is awake, alert, oriented (february,) knows her birthdate and husbands name. Patient reports she does not like getting yelled at by the [employer] system. I did explain to her its because she is on fall precautions. I asked her if she worked with physical therapist she replied she didnt which is true. I have kindly reminded her to allow physical therapy to work with her given she is on fall precautions given her recent fall. I have asked if she is craving alcohol but she denies. Assessment/Plan 1) Chronic Hyponatremia Assessment/Plan * Admit to tele * Beer potomania vs hypovoluemic vs s/p fall possible SIADH * Nephro consulted, Dr. Isabel, help appreciated * Likely chronic in the setting of persistent ETOH abuse; cannot rule out an acute component due to volume depletion; unfortunately, urine osm from presentation not yet available; if elevated, would be consistent with volume depletion and high ADH release; if Ur osm from presentation is low, would be consistent simply with indaequate solute intake in the setting of ETOH abuse ( ie. beer potomania); * Nevertheless, since serum Na increased sharply (120 -> 125) after being given just 1L NS, should continue to hold further IVF for now and just monitor serum Na and urine osm; * goal rate in rise of serum Na no more than 8 meq over 24 hrs; * Start sodium choloride tab 2 gm PO Q8H * c/w Lasix 20mg PO daily 2) Dehydration -->resolved Assessment/Plan * 1L NS given in ED 3) S/p fall Assessment/Plan * CT head: no acute pathology * Fall risk protocol * Physical therapy unable to work with patient given hgb 6.4 4) Anemia Likely chronic disease Assessment/Plan * suspected to be chronic * Reticulocyte count: 2.9 * Iron: 21 * TIBC: 513 * %saturation: 4 * Ferritin: 9.3 * B12: 433 * Folate: 17.5 * Rectal is negative. * stool occult blood negative X2 * type and screen ordered * Type and cross 1 unit of PRBC to be given today given drop in hemoglobin * Hemoglobin improve to the 8s * Start Ferrlecit 125mg IVPB daily 5) Alcohol abuse Assessment/Plan * elevated alcohol on admission * CIWA protocol * Ativan 1mg iv q6h prn seizure * Aspiration precautions * seizure precautions * Thiamine 100mg po daily * Folic acid 1mg po daily * Multivitamins daily 6) History of Depression Assessment/Plan * continue to monitor * Patient used to take Zoloft for a year, but she decided to stop using it about 10 years ago 7) Abnormal UA Assessment/Plan * Has abnormal UA-->esterase, pyuria * Pending urine culture * Start Rocephin 1 gram IV q daily 8) Rash Assessment/Plan * Bactroban ointment topical bid * Improving over the arms and legs 9) Prophylactic Measure Assessment/Plan * Aspiration precautions * seizure precautions * fall precautions * DVT prophylaxis once bleed ruled out * SCDs * Pepcid 20mg po daily * PT/OT eval
[2018-03-19] MEDS ORDERED: Ferric Sodium Gluconat Complex 62.5 mg/5 ml Vial IVPB SCH (10:00)
[2018-03-19 10:05] LABS: BASOPHIL 2 % (0-2); EOSINOPHIL 3 % (0-4); LYMPHOCYTE 9 % (20-40); MONOCYTE 17 % (0-10); NEUTROPHIL 69 % (50-75); NUCLEATED RED BLOOD CELL 1 % (0-0); PLATELET ESTIMATE NORMAL (NORMAL); TOTAL CELLS COUNTED 100
[2018-03-19 10:06] LABS: ANISOCYTOSIS SLIGHT; HYPOCHROMIC MODERATE; LARGE PLATELETS PRESENT; MICROCYTOSIS SLIGHT; POIKILOCYTOSIS SLIGHT; TARGET CELLS SLIGHT; TEARDROP CELLS SLIGHT
[2018-03-19] MEDS: Multiple Vitamins Tab PO SCH (10:45)
[2018-03-19] MEDS: Magnesium Sulfate 1 gm in D5W 1 GM/100 ML BAG IVPB SCH ×2 (11:00→11:24)
--- NOTE | 2018-03-19 12:21 | CP.PCM.PN ---
Subjective - Date & Time of Evaluation Date of Evaluation: 03/19/18 Time of Evaluation: 11:00 - Subjective Subjective: Reports feeling well, wanting to go home; reports dizziness improved, ambulating ; Objective - Vital Signs/Intake and Output Vital Signs (last 24 hours): Temp Pulse Resp BP Pulse Ox 99.0 F 94 H 20 128/74 100 03/19/18 08:34 03/19/18 08:34 03/19/18 08:34 03/19/18 10:45 03/19/18 08:34 Intake and Output: 03/19/18 03/19/18 06:59 18:59 Intake Total 300 Balance 300 - Medications Medications: Current Medications Famotidine (Pepcid) 20 mg PO DAILY [facility] Last Admin: 03/19/18 10:45 Dose: 20 mg Ferric Sodium Gluconate Complex (Ferrlecit) 125 mg IVPB DAILY [facility] Stop: 03/27/18 10:01 Last Admin: 03/19/18 10:45 Dose: 125 mg Folic Acid (Folic Acid) 1 mg PO DAILY [facility] Last Admin: 03/19/18 10:45 Dose: 1 mg Furosemide (Lasix) 20 mg PO DAILY [facility] Last Admin: 03/19/18 10:45 Dose: 20 mg Ceftriaxone Sodium 1 gm/ (Sodium Chloride) 100 mls @ 100 mls/hr IVPB Q24H [facility] PRN Reason: Protocol Last Admin: 03/18/18 18:38 Dose: 100 mls/hr Lorazepam (Ativan) 1 mg IVP Q6H PRN PRN Reason: Symptoms of alcohol withdrawl Multivitamins (Hexavitamin) 1 tab PO DAILY [facility] Last Admin: 03/19/18 10:45 Dose: 1 tab Mupirocin (Bactroban Ointment) 0 gm TOP BID [facility] Last Admin: 03/19/18 10:15 Dose: 1 applic Sodium Chloride (Sodium Chloride Tab) 2 gm PO Q8H [facility] Last Admin: 03/19/18 11:26 Dose: 2 gm Thiamine HCl (Vitamin B1 Tab) 100 mg PO DAILY [facility] Last Admin: 03/19/18 10:45 Dose: 100 mg - Labs Labs: 03/19/18 08:37 03/19/18 08:37 PT 13.7 SECONDS (9.7-12.2) H 03/17/18 14:12 INR 1.3 03/17/18 14:12 APTT 37 SECONDS (21-34) H 03/17/18 14:12 - Constitutional Appears: Non-toxic, No Acute Distress - Respiratory Exam Respiratory Exam: Clear to Ausculation Bilateral. absent: Respiratory Distress - Cardiovascular Exam Cardiovascular Exam: RRR, +S1, +S2 - GI/Abdominal Exam GI & Abdominal Exam: Soft. absent: Distended, Tenderness - Extremities Exam Additional comments: no leg edema; - Neurological Exam Neurological Exam: Alert, Awake - Psychiatric Exam Psychiatric exam: absent: Agitated Assessment and Plan (1) Hyponatremia Assessment & Plan: Serum Na improved after starting lasix and salt tabs yesterday; unfortunately, patient is unlikely to comply with meds and gives no indication that she wants to give up drinking ETOH; continuing lasix with patient reverting back to ETOH abuse and without outpatient f/u risks volume depletion and its consequences; -agree with primary attending that with patient signing AMA, to withhold lasix/ salt tabs as outpatient unless patient returns to clinic for f/u; patient advised to adhere to PO fluid restriction; Status: Acute (2) Anemia Assessment & Plan: Hgb responding appropriately s/p 1 u prbc transfusion; being given IV iron as well; Status: Chronic (3) Seizure Status: Acute
--- NOTE | 2018-03-19 14:28 | CP.PCM.PN ---
<Dionicio Kaufman - Last Filed: 03/19/18 14:27> Subjective - Date & Time of Evaluation Date of Evaluation: 03/19/18 Time of Evaluation: 14:27 - Subjective Subjective: House Doc Note: Patient has decided to leave the hospital against medical advice. The patient is competent and understands the risks of leaving, including permanent disability and/or , and has had an opportunity to ask questions about his/ her condition. Patient accepts all risk and liability. Paper work filed. Attending notified by RN. The patient has been informed that he/she may return for care at any time, and patient will follow-up with PMD urgently. Objective - Vital Signs/Intake and Output Vital Signs (last 24 hours): Temp Pulse Resp BP Pulse Ox 99.0 F 94 H 20 128/74 100 03/19/18 08:34 03/19/18 09:00 03/19/18 08:34 03/19/18 10:45 03/19/18 08:34 Intake and Output: 03/19/18 03/19/18 06:59 18:59 Intake Total 300 Balance 300 - Medications Medications: Current Medications Famotidine (Pepcid) 20 mg PO DAILY [facility] Last Admin: 03/19/18 10:45 Dose: 20 mg Ferric Sodium Gluconate Complex (Ferrlecit) 125 mg IVPB DAILY [facility] Stop: 03/27/18 10:01 Last Admin: 03/19/18 10:45 Dose: 125 mg Folic Acid (Folic Acid) 1 mg PO DAILY [facility] Last Admin: 03/19/18 10:45 Dose: 1 mg Furosemide (Lasix) 20 mg PO DAILY [facility] Last Admin: 03/19/18 10:45 Dose: 20 mg Ceftriaxone Sodium 1 gm/ (Sodium Chloride) 100 mls @ 100 mls/hr IVPB Q24H [facility] PRN Reason: Protocol Last Admin: 03/18/18 18:38 Dose: 100 mls/hr Lorazepam (Ativan) 1 mg IVP Q6H PRN PRN Reason: Symptoms of alcohol withdrawl Multivitamins (Hexavitamin) 1 tab PO DAILY [facility] Last Admin: 03/19/18 10:45 Dose: 1 tab Mupirocin (Bactroban Ointment) 0 gm TOP BID [facility] Last Admin: 03/19/18 10:15 Dose: 1 applic Sodium Chloride (Sodium Chloride Tab) 2 gm PO Q8H [facility] Last Admin: 03/19/18 11:26 Dose: 2 gm Thiamine HCl (Vitamin B1 Tab) 100 mg PO DAILY [facility] Last Admin: 03/19/18 10:45 Dose: 100 mg - Labs Labs: 03/19/18 08:37 03/19/18 08:37 PT 13.7 SECONDS (9.7-12.2) H 03/17/18 14:12 INR 1.3 03/17/18 14:12 APTT 37 SECONDS (21-34) H 03/17/18 14:12 - Additional Findings Additional findings: - Constitutional Appears: Non-toxic, No Acute Distress - Head Exam Head Exam: NORMAL INSPECTION - Eye Exam Eye Exam: EOMI - ENT Exam ENT Exam: Mucous Membranes Moist - Respiratory Exam Respiratory Exam: Clear to Ausculation Bilateral, NORMAL BREATHING PATTERN. absent: Rales, Rhonchi, Wheezes - Cardiovascular Exam Cardiovascular Exam: REGULAR RHYTHM, +S1, +S2 - GI/Abdominal Exam GI & Abdominal Exam: Soft, Normal Bowel Sounds. absent: Distended, Firm, Guarding, Rigid, Tenderness, Rebound - Extremities Exam Extremities Exam: absent: Pedal Edema, Tenderness - Neurological Exam Neurological Exam: Alert, Awake, Oriented x3 Neuro motor strength exam: Left Upper Extremity: 5, Right Upper Extremity: 5, Left Lower Extremity: 5, Right Lower Extremity: 5 - Psychiatric Exam Psychiatric exam: Normal Affect, Normal Mood - Skin Skin Exam: Dry, Warm Additional comments: scabs over legs, arms, back (no open wounds); fading over the upper and lower extremities <Rubi Elaine V - Last Filed: 03/21/18 00:27> Objective - Vital Signs/Intake and Output Vital Signs (last 24 hours): Temp Pulse Resp BP Pulse Ox 99.0 F 94 H 20 128/74 100 03/19/18 08:34 03/19/18 09:00 03/19/18 08:34 03/19/18 10:45 03/19/18 08:34 - Labs Labs: 03/19/18 08:37 03/19/18 08:37 PT 13.7 SECONDS (9.7-12.2) H 03/17/18 14:12 INR 1.3 03/17/18 14:12 APTT 37 SECONDS (21-34) H 03/17/18 14:12 Assessment and Plan (1) Chronic hyponatremia Status: Acute (2) Rash Status: Acute (3) Alcohol abuse Status: Acute (4) Anemia Status: Chronic Attending/Attestation - Attestation I have personally seen and examined this patient.: Yes I have fully participated in the care of the patient.: Yes I have reviewed all pertinent clinical information, including history, physical exam and plan: Yes Notes (Text): This is late computer entry for 03/19/18. Patient seen, examined and case discussed with medical sales. Patient instructed risks against leaving against medical prematurely during hospitalization. This was witnessed by myself, resident, and patent's nurse. I have spoken with nephrology, no further recommendations since patient is leaving against medical except patient recommended to f/u in the clinic in one week. Patient has been warned to curb her alcohol drinking.
--- NOTE | 2018-03-19 14:32 | CP.PCM.DIS ---
<Dionicio Kaufman - Last Filed: 03/19/18 19:33> Provider - Provider Date of Admission: 03/17/18 15:23 Attending physician: Rubi Elaine DO Primary care physician: PMD- none Consults: Nephro- Dr. Montaño Time Spent in preparation of Discharge (in minutes): 25 Hospital Course - Lab Results Lab Results: Micro Results 03/18/18 13:14 Urine Urine Culture - Preliminary Gram Negative Abraham Most Recent Lab Values WBC 6.9 K/uL (4.8-10.8) 03/19/18 08:37 RBC 3.36 Mil/uL (3.80-5.20) L 03/19/18 08:37 Hgb 8.1 g/dL (11.0-16.0) L 03/19/18 08:37 Hct 24.6 % (34.0-47.0) L 03/19/18 08:37 MCV 73.1 fL (81.0-99.0) L 03/19/18 08:37 MCH 24.1 pg (27.0-31.0) L 03/19/18 08:37 MCHC 32.9 g/dL (33.0-37.0) L 03/19/18 08:37 RDW 23.0 % (11.5-14.5) H 03/19/18 08:37 Plt Count 153 K/uL (130-400) 03/19/18 08:37 MPV 8.7 fL (7.2-11.7) 03/19/18 08:37 Neut % (Auto) 71.5 % (50.0-75.0) 03/19/18 08:37 Lymph % (Auto) 7.0 % (20.0-40.0) L 03/19/18 08:37 [place] % (Auto) 19.9 % (0.0-10.0) H 03/19/18 08:37 Eos % (Auto) 1.1 % (0.0-4.0) 03/19/18 08:37 Baso % (Auto) 0.5 % (0.0-2.0) 03/19/18 08:37 Neut # (Auto) 4.9 K/uL (1.8-7.0) 03/19/18 08:37 Lymph # (Auto) 0.5 K/uL (1.0-4.3) L 03/19/18 08:37 [place] # (Auto) 1.4 K/uL (0.0-0.8) H 03/19/18 08:37 Eos # (Auto) 0.1 K/uL (0.0-0.7) 03/19/18 08:37 Baso # (Auto) 0.0 K/uL (0.0-0.2) 03/19/18 08:37 Neutrophils % (Manual) 69 % (50-75) 03/19/18 08:37 Band Neutrophils % 4 % (0-2) H 03/18/18 07:37 Lymphocytes % (Manual) 9 % (20-40) L 03/19/18 08:37 Monocytes % (Manual) 17 % (0-10) H 03/19/18 08:37 Eosinophils % (Manual) 3 % (0-4) 03/19/18 08:37 Basophils % (Manual) 2 % (0-2) 03/19/18 08:37 Nucleated RBC % 1 % (0-0) H 03/19/18 08:37 Platelet Estimate Normal (NORMAL) 03/19/18 08:37 Large Platelets Present 03/19/18 08:37 Polychromasia Slight 03/18/18 19:41 Hypochromasia (manual) Moderate 03/19/18 08:37 Poikilocytosis (manual Slight 03/19/18 08:37 Anisocytosis (manual) Slight 03/19/18 08:37 Microcytosis (manual) Slight 03/19/18 08:37 Target Cells Slight 03/19/18 08:37 Tear Drop Cells Slight 03/19/18 08:37 Retic Count 2.9 % (0.5-1.5) H 03/17/18 15:49 Haptoglobin 189.8 mg/dL (30.0-200.0) 03/17/18 19:36 PT 13.7 SECONDS (9.7-12.2) H 03/17/18 14:12 INR 1.3 03/17/18 14:12 APTT 37 SECONDS (21-34) H 03/17/18 14:12 Sodium 128 mmol/L (132-148) L 03/19/18 08:37 Potassium 4.1 mmol/L (3.6-5.2) 03/19/18 08:37 Chloride 90 mmol/L (98-107) L 03/19/18 08:37 Carbon Dioxide 26 mmol/L (22-30) 03/19/18 08:37 Anion Gap 16 (10-20) 03/19/18 08:37 BUN 17 mg/dL (7-17) 03/19/18 08:37 Creatinine 0.7 mg/dL (0.7-1.2) 03/19/18 08:37 Est GFR ( Amer) > 60 03/19/18 08:37 Est GFR (Non-Af Amer) > 60 03/19/18 08:37 POC Glucose (mg/dL) 119 mg/dL (65-110) H 03/17/18 13:31 Random Glucose 110 mg/dL (65-105) H 03/19/18 08:37 Serum Osmolality 305 mosm/kg (272-300) H 03/17/18 15:59 Calcium 9.1 mg/dl (8.6-10.4) 03/19/18 08:37 Phosphorus 2.6 mg/dL (2.5-4.5) 03/19/18 08:37 Magnesium 1.5 mg/dL (1.6-2.3) L 03/19/18 08:37 Iron 21 ug/dL (37-170) L 03/17/18 19:36 TIBC 513 ug/dL (250-450) H 03/17/18 19:36 % Saturation 4 (20-55) L 03/17/18 19:36 Ferritin 9.3 ng/mL 03/17/18 15:59 Total Bilirubin 0.7 mg/dL (0.2-1.3) 03/19/18 08:37 AST 64 U/L (14-36) H D 03/19/18 08:37 ALT 28 U/L (9-52) 03/19/18 08:37 Alkaline Phosphatase 204 U/L (38-126) H 03/19/18 08:37 Total Creatine Kinase 85 U/L (30-135) 03/17/18 14:12 Troponin I < 0.0120 ng/mL (0.00-0.120) 03/17/18 14:12 NT-Pro-B Natriuret Pep 85.4 pg/mL (0-450) 03/17/18 14:12 Total Protein 9.1 g/dL (6.3-8.3) H 03/19/18 08:37 Albumin 4.2 g/dL (3.5-5.0) 03/19/18 08:37 Globulin 5.0 gm/dL (2.2-3.9) H 03/19/18 08:37 Albumin/Globulin Ratio 0.8 (1.0-2.1) L 03/19/18 08:37 Triglycerides 41 mg/dL (0-149) 03/18/18 07:37 Cholesterol 144 mg/dL (0-199) 03/18/18 07:37 LDL Cholesterol Direct 31 mg/dL (0-129) 03/18/18 07:37 HDL Cholesterol 73 mg/dL (30-70) H 03/18/18 07:37 Vitamin B12 433 pg/mL (239-931) 03/17/18 15:59 Folate 17.5 ng/mL 03/17/18 19:36 Free T4 1.12 ng/dL (0.78-2.19) 03/19/18 08:37 TSH 3rd Generation 7.56 mIU/L (0.46-4.68) H 03/18/18 07:37 Prolactin 14.9 ng/mL (3.0-18.9) 03/18/18 07:37 Cortisol AM Sample 13.0 ug/dL (4.46-22.7) 03/18/18 07:37 Urine Color Yellow (YELLOW) 03/17/18 14:25 Urine Clarity Hazy (Clear) 03/17/18 14:25 Urine pH 7.0 (5.0-8.0) 03/17/18 14:25 Ur Specific [place] 1.010 (1.003-1.030) 03/17/18 14:25 Urine Protein 1+ mg/dL (NEGATIVE) H 03/17/18 14:25 Urine Glucose (UA) Normal mg/dL (Normal) 03/17/18 14:25 Urine Ketones Negative mg/dL (NEGATIVE) 03/17/18 14:25 Urine Blood Negative (NEGATIVE) 03/17/18 14:25 Urine Nitrate Negative (NEGATIVE) 03/17/18 14:25 Urine Bilirubin Negative (NEGATIVE) 03/17/18 14:25 Urine Urobilinogen 2.0 mg/dL (0.2-1.0) H 03/17/18 14:25 Ur Leukocyte Esterase 3+ Viktor/uL (Negative) H 03/17/18 14:25 Urine WBC (Auto) 49 /hpf (0-5) H 03/17/18 14:25 Urine RBC (Auto) 2 /hpf (0-3) 03/17/18 14:25 Ur Squamous Epith Cells 5 /hpf (0-5) 03/17/18 14:25 Urine Bacteria Occ (<OCC) H 03/17/18 14:25 Urine Osmolality 411 mosm/kg (300-1000) 03/18/18 13:14 Ur Random Sodium 68 mmol/L 03/18/18 13:14 Ur Random Potassium 29.7 mmol/L 03/18/18 13:14 Urine HCG, Qual Negative (NEGATIVE) 03/17/18 14:25 Stool Occult Blood Negative (NEGATIVE) 03/17/18 18:05 Urine Opiates Screen Negative (NEGATIVE) 03/17/18 14:25 Urine Methadone Screen Negative (NEGATIVE) 03/17/18 14:25 Ur Barbiturates Screen Negative (NEGATIVE) 03/17/18 14:25 Ur Phencyclidine Scrn Negative (NEGATIVE) 03/17/18 14:25 Ur Amphetamines Screen Negative (NEGATIVE) 03/17/18 14:25 U Benzodiazepines Scrn Negative (NEGATIVE) 03/17/18 14:25 U Oth Cocaine Metabols Negative (NEGATIVE) 03/17/18 14:25 U Cannabinoids Screen Negative (NEGATIVE) 03/17/18 14:25 Alcohol, Quantitative 155 mg/dl (0-10) H 03/17/18 14:12 Blood Type O POSITIVE 03/17/18 19:36 Antibody Screen Negative 03/17/18 19:36 - Hospital Course Hospital Course: Upon hospital admission: Patient has a PMHx of alcohol abuse, anemia, and depression (with multiple suicide attempts last one 10 years ago). Patient also admits to using crack 10 years ago daily. Patient presents today for dizziness and falls. Patient says she falls almost every day. Today the patient felt palpitations and dizziness and then fell to the floor. She said she did not hit her head today but thinks she may have hit her head 1 week ago. Patient did not lose consciousness or bowel or bladder incontinence. When patient was being transferred from the waiting room to a bed in the ED, staff said she became rigid, her eyes rolled back in her head, and she urinated herself. Patient says she does not remember this episode. Currently patient says she feels slightly lightheaded. Patient denies headache, chest pain, shortness of breath, abdominal pain, nausea, vomiting, constipation, or diarrhea. PMD: Dr. Nelson All: NKDA PMHx: Anemia, depression Psur c sections Social: drinks 4-5 large beers daily for 10 years used to do crack cocaine 10 years ago, used to smoke cigarettes 10 years ago Famhx: Mom- HTN Meds: was on zoloft 10 years ago for depression, no medications currently During hospital course, the patient was evaluated and treated for the following : (1) Chronic Hyponatremia. Nephro consulted, Dr. Isabel, who started her on sodium choloride tab 2 gm PO Q8H and Lasix 20mg PO daily. He determined: (a). Likely chronic in the setting of persistent ETOH abuse; cannot rule out an acute component due to volume depletion; unfortunately, urine osm from presentation not yet available; if elevated, would be consistent with volume depletion and high ADH release; if Ur osm from presentation is low, would be consistent simply with indaequate solute intake in the setting of ETOH abuse ( ie. beer potomania); (b). Nevertheless, since serum Na increased sharply (120 -> 125) after being given just 1L NS, should continue to hold further IVF for now and just monitor serum Na and urine osm; (c). goal rate in rise of serum Na no more than 8 meq over 24 hrs; (2) Anemia Likely chronic disease - she was transfused 1u PRBC and started on ferrlecit 125mg IVPB daily. She responded well to this treatment. See emr for further detail. (3) ETOH abuse tx with ativan, thiamine, FA, MVI, and CIWA protocol. Unfortunately, the patient has decided to leave the hospital against medical advice. The patient is competent and understands the risks of leaving, including permanent disability and/or , and has had an opportunity to ask questions about his/her condition. Patient accepts all risk and liability. Paper work filed. Attending notified by RN. The patient has been informed that he/she may return for care at any time, and patient will follow-up with PMD urgently. She was encouraged to continue with a salt restricted diet, although she has a strong history of alcohol abuse and non-compliance. This is a summary of the patient's hospital admission, see chart for comprehensive detail. - Date & Time of H&P Date of H&P: 03/17/18 Time of H&P: 16:19 Discharge Exam - Head Exam Head Exam: NORMAL INSPECTION - Additional Findings Additional findings: - Constitutional Appears: Non-toxic, No Acute Distress - Head Exam Head Exam: NORMAL INSPECTION - Eye Exam Eye Exam: EOMI - ENT Exam ENT Exam: Mucous Membranes Moist - Respiratory Exam Respiratory Exam: Clear to Ausculation Bilateral, NORMAL BREATHING PATTERN. absent: Rales, Rhonchi, Wheezes - Cardiovascular Exam Cardiovascular Exam: REGULAR RHYTHM, +S1, +S2 - GI/Abdominal Exam GI & Abdominal Exam: Soft, Normal Bowel Sounds. absent: Distended, Firm, Guarding, Rigid, Tenderness, Rebound - Extremities Exam Extremities Exam: absent: Pedal Edema, Tenderness - Neurological Exam Neurological Exam: Alert, Awake, Oriented x3 Neuro motor strength exam: Left Upper Extremity: 5, Right Upper Extremity: 5, Left Lower Extremity: 5, Right Lower Extremity: 5 - Psychiatric Exam Psychiatric exam: Normal Affect, Normal Mood - Skin Skin Exam: Dry, Warm Additional comments: scabs over legs, arms, back (no open wounds); fading over the upper and lower extremities Discharge Plan - Follow Up Plan Condition: STABLE Disposition: AGAINST MEDICAL ADVICE <Rubi Elaine V - Last Filed: 03/21/18 00:31> Provider - Provider Date of Admission: 03/17/18 15:23 Attending physician: Rubi Elaine DO Diagnosis - Discharge Diagnosis (1) Left against medical advice Status: Acute (2) Chronic hyponatremia Status: Acute (3) Rash Status: Acute (4) Alcohol abuse Status: Chronic (5) Anemia Status: Chronic Hospital Course - Lab Results Lab Results: Micro Results 03/18/18 13:14 Urine Urine Culture - Final Escherichia Coli Most Recent Lab Values WBC 6.9 K/uL (4.8-10.8) 03/19/18 08:37 RBC 3.36 Mil/uL (3.80-5.20) L 03/19/18 08:37 Hgb 8.1 g/dL (11.0-16.0) L 03/19/18 08:37 Hct 24.6 % (34.0-47.0) L 03/19/18 08:37 MCV 73.1 fL (81.0-99.0) L 03/19/18 08:37 MCH 24.1 pg (27.0-31.0) L 03/19/18 08:37 MCHC 32.9 g/dL (33.0-37.0) L 03/19/18 08:37 RDW 23.0 % (11.5-14.5) H 03/19/18 08:37 Plt Count 153 K/uL (130-400) 03/19/18 08:37 MPV 8.7 fL (7.2-11.7) 03/19/18 08:37 Neut % (Auto) 71.5 % (50.0-75.0) 03/19/18 08:37 Lymph % (Auto) 7.0 % (20.0-40.0) L 03/19/18 08:37 [place] % (Auto) 19.9 % (0.0-10.0) H 03/19/18 08:37 Eos % (Auto) 1.1 % (0.0-4.0) 03/19/18 08:37 Baso % (Auto) 0.5 % (0.0-2.0) 03/19/18 08:37 Neut # (Auto) 4.9 K/uL (1.8-7.0) 03/19/18 08:37 Lymph # (Auto) 0.5 K/uL (1.0-4.3) L 03/19/18 08:37 [place] # (Auto) 1.4 K/uL (0.0-0.8) H 03/19/18 08:37 Eos # (Auto) 0.1 K/uL (0.0-0.7) 03/19/18 08:37 Baso # (Auto) 0.0 K/uL (0.0-0.2) 03/19/18 08:37 Neutrophils % (Manual) 69 % (50-75) 03/19/18 08:37 Band Neutrophils % 4 % (0-2) H 03/18/18 07:37 Lymphocytes % (Manual) 9 % (20-40) L 03/19/18 08:37 Monocytes % (Manual) 17 % (0-10) H 03/19/18 08:37 Eosinophils % (Manual) 3 % (0-4) 03/19/18 08:37 Basophils % (Manual) 2 % (0-2) 03/19/18 08:37 Nucleated RBC % 1 % (0-0) H 03/19/18 08:37 Platelet Estimate Normal (NORMAL) 03/19/18 08:37 Large Platelets Present 03/19/18 08:37 Polychromasia Slight 03/18/18 19:41 Hypochromasia (manual) Moderate 03/19/18 08:37 Poikilocytosis (manual Slight 03/19/18 08:37 Anisocytosis (manual) Slight 03/19/18 08:37 Microcytosis (manual) Slight 03/19/18 08:37 Target Cells Slight 03/19/18 08:37 Tear Drop Cells Slight 03/19/18 08:37 Retic Count 2.9 % (0.5-1.5) H 03/17/18 15:49 Haptoglobin 189.8 mg/dL (30.0-200.0) 03/17/18 19:36 PT 13.7 SECONDS (9.7-12.2) H 03/17/18 14:12 INR 1.3 03/17/18 14:12 APTT 37 SECONDS (21-34) H 03/17/18 14:12 Sodium 128 mmol/L (132-148) L 03/19/18 08:37 Potassium 4.1 mmol/L (3.6-5.2) 03/19/18 08:37 Chloride 90 mmol/L (98-107) L 03/19/18 08:37 Carbon Dioxide 26 mmol/L (22-30) 03/19/18 08:37 Anion Gap 16 (10-20) 03/19/18 08:37 BUN 17 mg/dL (7-17) 03/19/18 08:37 Creatinine 0.7 mg/dL (0.7-1.2) 03/19/18 08:37 Est GFR ( Amer) > 60 03/19/18 08:37 Est GFR (Non-Af Amer) > 60 03/19/18 08:37 POC Glucose (mg/dL) 119 mg/dL (65-110) H 03/17/18 13:31 Random Glucose 110 mg/dL (65-105) H 03/19/18 08:37 Serum Osmolality 305 mosm/kg (272-300) H 03/17/18 15:59 Calcium 9.1 mg/dl (8.6-10.4) 03/19/18 08:37 Phosphorus 2.6 mg/dL (2.5-4.5) 03/19/18 08:37 Magnesium 1.5 mg/dL (1.6-2.3) L 03/19/18 08:37 Iron 21 ug/dL (37-170) L 03/17/18 19:36 TIBC 513 ug/dL (250-450) H 03/17/18 19:36 % Saturation 4 (20-55) L 03/17/18 19:36 Ferritin 9.3 ng/mL 03/17/18 15:59 Total Bilirubin 0.7 mg/dL (0.2-1.3) 03/19/18 08:37 AST 64 U/L (14-36) H D 03/19/18 08:37 ALT 28 U/L (9-52) 03/19/18 08:37 Alkaline Phosphatase 204 U/L (38-126) H 03/19/18 08:37 Total Creatine Kinase 85 U/L (30-135) 03/17/18 14:12 Troponin I < 0.0120 ng/mL (0.00-0.120) 03/17/18 14:12 NT-Pro-B Natriuret Pep 85.4 pg/mL (0-450) 03/17/18 14:12 Total Protein 9.1 g/dL (6.3-8.3) H 03/19/18 08:37 Albumin 4.2 g/dL (3.5-5.0) 03/19/18 08:37 Globulin 5.0 gm/dL (2.2-3.9) H 03/19/18 08:37 Albumin/Globulin Ratio 0.8 (1.0-2.1) L 03/19/18 08:37 Triglycerides 41 mg/dL (0-149) 03/18/18 07:37 Cholesterol 144 mg/dL (0-199) 03/18/18 07:37 LDL Cholesterol Direct 31 mg/dL (0-129) 03/18/18 07:37 HDL Cholesterol 73 mg/dL (30-70) H 03/18/18 07:37 Vitamin B12 433 pg/mL (239-931) 03/17/18 15:59 Folate 17.5 ng/mL 03/17/18 19:36 RBC Folate 773 ng/mL RBC (>280) 03/17/18 16:11 Free T4 1.12 ng/dL (0.78-2.19) 03/19/18 08:37 TSH 3rd Generation 7.56 mIU/L (0.46-4.68) H 03/18/18 07:37 Prolactin 14.9 ng/mL (3.0-18.9) 03/18/18 07:37 Cortisol AM Sample 13.0 ug/dL (4.46-22.7) 03/18/18 07:37 Urine Color Yellow (YELLOW) 03/17/18 14:25 Urine Clarity Hazy (Clear) 03/17/18 14:25 Urine pH 7.0 (5.0-8.0) 03/17/18 14:25 Ur Specific [place] 1.010 (1.003-1.030) 03/17/18 14:25 Urine Protein 1+ mg/dL (NEGATIVE) H 03/17/18 14:25 Urine Glucose (UA) Normal mg/dL (Normal) 03/17/18 14:25 Urine Ketones Negative mg/dL (NEGATIVE) 03/17/18 14:25 Urine Blood Negative (NEGATIVE) 03/17/18 14:25 Urine Nitrate Negative (NEGATIVE) 03/17/18 14:25 Urine Bilirubin Negative (NEGATIVE) 03/17/18 14:25 Urine Urobilinogen 2.0 mg/dL (0.2-1.0) H 03/17/18 14:25 Ur Leukocyte Esterase 3+ Viktor/uL (Negative) H 03/17/18 14:25 Urine WBC (Auto) 49 /hpf (0-5) H 03/17/18 14:25 Urine RBC (Auto) 2 /hpf (0-3) 03/17/18 14:25 Ur Squamous Epith Cells 5 /hpf (0-5) 03/17/18 14:25 Urine Bacteria Occ (<OCC) H 03/17/18 14:25 Urine Osmolality 411 mosm/kg (300-1000) 03/18/18 13:14 Ur Random Sodium 68 mmol/L 03/18/18 13:14 Ur Random Potassium 29.7 mmol/L 03/18/18 13:14 Urine HCG, Qual Negative (NEGATIVE) 03/17/18 14:25 Stool Occult Blood Negative (NEGATIVE) 03/17/18 18:05 Urine Opiates Screen Negative (NEGATIVE) 03/17/18 14:25 Urine Methadone Screen Negative (NEGATIVE) 03/17/18 14:25 Ur Barbiturates Screen Negative (NEGATIVE) 03/17/18 14:25 Ur Phencyclidine Scrn Negative (NEGATIVE) 03/17/18 14:25 Ur Amphetamines Screen Negative (NEGATIVE) 03/17/18 14:25 U Benzodiazepines Scrn Negative (NEGATIVE) 03/17/18 14:25 U Oth Cocaine Metabols Negative (NEGATIVE) 03/17/18 14:25 U Cannabinoids Screen Negative (NEGATIVE) 03/17/18 14:25 Alcohol, Quantitative 155 mg/dl (0-10) H 03/17/18 14:12 Blood Type O POSITIVE 03/17/18 19:36 Antibody Screen Negative 03/17/18 19:36 Attending/Attestation - Attestation I have personally seen and examined this patient.: Yes I have fully participated in the care of the patient.: Yes I have reviewed all pertinent clinical information, including history, physical exam and plan: Yes Notes (Text): Assessment/Plan 1) Left Against Medical Advice * Patient is AAO X3, patient instructed risks of leaving prematurely during her currently hospitalization with her current problems noted below. Conversation witness with me, resident, and patient's nurse. Patient has politely been counselled against her alcohol use give her current problems. 2) Chronic Hyponatremia Assessment/Plan * Admit to tele * Beer potomania vs hypovoluemic vs s/p fall possible SIADH * Nephro consulted, Dr. Isabel, help appreciated * Likely chronic in the setting of persistent ETOH abuse; cannot rule out an acute component due to volume depletion; unfortunately, urine osm from presentation not yet available; if elevated, would be consistent with volume depletion and high ADH release; if Ur osm from presentation is low, would be consistent simply with indaequate solute intake in the setting of ETOH abuse ( ie. beer potomania); * Nevertheless, since serum Na increased sharply (120 -> 125) after being given just 1L NS, should continue to hold further IVF for now and just monitor serum Na and urine osm; * goal rate in rise of serum Na no more than 8 meq over 24 hrs; * Start sodium choloride tab 2 gm PO Q8H * c/w Lasix 20mg PO daily 3) Dehydration -->resolved Assessment/Plan * 1L NS given in ED 4) S/p fall Assessment/Plan * CT head: no acute pathology * Fall risk protocol * Physical therapy unable to work with patient given hgb 6.4 5) Anemia Likely chronic disease Assessment/Plan * suspected to be chronic * Reticulocyte count: 2.9 * Iron: 21 * TIBC: 513 * %saturation: 4 * Ferritin: 9.3 * B12: 433 * Folate: 17.5 * Rectal is negative. * stool occult blood negative X2 * type and screen ordered * Type and cross 1 unit of PRBC to be given day prior given drop in hemoglobin * Hemoglobin improve to the 8s * Start Ferrlecit 125mg IVPB daily 6) Alcohol abuse Assessment/Plan * elevated alcohol on admission * CIWA protocol * Ativan 1mg iv q6h prn seizure * Aspiration precautions * seizure precautions * Thiamine 100mg po daily * Folic acid 1mg po daily * Multivitamins daily 7) History of Depression Assessment/Plan * continue to monitor * Patient used to take Zoloft for a year, but she decided to stop using it about 10 years ago 8) Abnormal UA Assessment/Plan * Has abnormal UA-->esterase, pyuria * Pending urine culture * Start Rocephin 1 gram IV q daily 9) Rash Assessment/Plan * Bactroban ointment topical bid * Improving over the arms and legs 10) Prophylactic Measure Assessment/Plan * Aspiration precautions * seizure precautions * fall precautions * DVT prophylaxis once bleed ruled out * SCDs * Pepcid 20mg po daily * PT/OT eval
== END 2018-03-19 14:38 | disposition left against medical advice (07) | DRG 641 ==
LOC: C.ER 13:03 → C.9E 15:23 → C.6T 16:52
PROVIDERS: ADMIT Hospitalist; ATTEND Hospitalist
DX: E87.1 Hypo-osmolality and hyponatremia (principal); R18.8 Other ascites; N39.0 Urinary tract infection, site not specified; D63.8 Anemia in other chronic diseases classified elsewhere; F10.220 Alcohol dependence with intoxication, uncomplicated; Y90.6 Blood alcohol level of 120-199 mg/100 ml; E61.1 Iron deficiency; E86.0 Dehydration; J45.909 Unspecified asthma, uncomplicated; K74.60 Unspecified cirrhosis of liver; Z87.891 Personal history of nicotine dependence; R56.9 Unspecified convulsions